=== PATIENT | female | born 1965 | race Caucasian/White ===

== ENCOUNTER → 2017-04-27 08:42 | Outpatient (CLI) | payer OTHER, SELFPAY ==
[2017-04-27 10:31] LABS: Hemoglobin A1c 5.6 % (4.2-6.3)
[2017-04-27 10:43] LABS: ALB/GLOB Ratio 1.2 RATIO (0.9-2.4); AST(SGOT) 58 U/L (15-37); Alanine Aminotransfer ALT/SGPT 88 U/L (13-56); Albumin, Serum 3.7 g/dL (3.2-5.0); Alkaline Phosphatase 66 U/L (45-117); Anion Gap 7 (5-15); BUN 12 mg/dL (7-18); BUN/Creat Ratio 18.6 RATIO (10-20); Calcium,Total 8.5 mg/dL (8.5-10.1); Chloride 104 mmol/L (98-107); Creatinine, Serum 0.64 mg/dL (0.55-1.02); EST Glomerular Filtration Rate 103 mL/min (>60); Est Glom Filt Rate - Afr Amer 125 mL/min (>60); GGTP 72 U/L (5-55); Glucose 85 mg/dL (74-106); Potassium 3.9 mmol/L (3.5-5.1); Protein, Total 6.7 g/dL (6.4-8.2); Sodium Level 141 mmol/L (136-145)
[2017-04-28 16:05] LABS: Immunoglobulin G 814 mg/dL (700-1600)
== END ==
PROVIDERS: Family Provider Family Medicine; PCP Family Medicine; Visit Provider Family Medicine
DX: K90.9 Intestinal malabsorption, unspecified (principal); R74.0 Nonspecific elevation of levels of transaminase and lactic acid dehydrogenase [LDH]
CPT/HCPCS: 36415; 80053; 82140; 82784; 82977; 83036

== ENCOUNTER → 2017-07-16 06:43 | Outpatient (CLI) | payer OTHER, SELFPAY ==
--- NOTE | 2017-07-16 07:00 | MRI_ITS ---
STUDY: MRI LEFT MIDFOOT REASON FOR EXAM: Midfoot pain status post injury 4 weeks ago. TECHNIQUE: Standardized fat and water weighted pulse sequences were obtained in all 3 orthogonal planes. COMPARISON: None. FINDINGS: There is a small tibiotalar joint effusion (inversion recovery sagittal image 10). There is a small talonavicular joint effusion (inversion recovery sagittal images 9, 10). Normal calcaneocuboid articulation. Normal navicular-cuneiform articulations. Normal intercuneiform articulations. There is very mild bone edema in the body of the calcaneus at the angle of Gissane. Normal first tarsometatarsal articulation. There is a sprain of Lisfranc ligament (T2 axial series 5 image 9) without rupture of the ligament. Normal second and third tarsometatarsal articulations. Normal cuboid fourth and cuboid fifth tarsometatarsal articulation. Normal first through fifth metatarsi. Normal tibialis anterior tendon. Normal extensor hallucis longus tendon. Normal extensor digitorum longus tendons. Normal peroneus longus tendon and distal insertion. There is mild tendinosis of the distal peroneus brevis tendon (T2 axial series 5 image 15). Normal intrinsic muscles of the mid and forefoot region. Normal extensor digitorum brevis muscle. Normal subcutis adipose space. MRI/Lower Ext/No Jt/w/o IMPRESSION: Lisfranc ligament sprain. Mild distal peroneus brevis tendinosis. Small tibiotalar and talonavicular joint effusions. Electronically Signed: Satnam Ashton MD at 8:30 EDT Tel , Service support ,
== END ==
PROVIDERS: Family Provider Family Medicine; PCP Family Medicine; Visit Provider Podiatrist
DX: S93.325A Dislocation of tarsometatarsal joint of left foot, initial encounter (principal); S90.32XA Contusion of left foot, initial encounter; S93.692A Other sprain of left foot, initial encounter
CPT/HCPCS: 73718

== ENCOUNTER 2017-11-10 08:00 | Outpatient (RCR) | payer OTHER, SELFPAY ==
--- NOTE | 2017-10-29 16:00 | HP.PTEVAL ---
Patient's Visit Information SHONA MAJANO is a 52 year old F referred to Physical Therapy by Qi Henriquez DPM with a diagnosis of L ankle and midfoot sprain. Date of Evaluation: 10/29/17 Physical Therapist: Adan Escamilla PT, - Visit Plan Frequency: 2-3x /Week Duration: 3 Weeks Plan: L ankle stretching and strengthening, balance and proprio, foam rolling, bike, US, and HEP - Subjective Subjective: DOI: 05/15/17. Pt reports she was square dancing when a man fell and stepped on her L foot. Pt reports later on that evening, she stepped into a pothole and sprained her L ankle. Pt reports she waited a month to go to the doctors, but eventually had to because she couldent walk. Pt notes she had an xray and an MRI which revealed a sprained L ankle and midfoot. Pt was placed in a boot for 2 months, but her pain only became worse. Pt reports most of her pain is located on the arch of her L foot, and on the lateral ankle aspect. Pt reports her ankle pain is jabbing in nature. Pt reports she is unable to perform a heelraise secondary to pain. 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 No sleep diff secondary to pain. Pt notes her foot is numb on the dorsal aspect near her 2-4 metatarsals. Pt's major goal is to be able to dance again, as she cant now secondary to pain. 0/10 at rest, 10/10 at worst - Pain L ankle Pain Intensity (Out of 10): 0 Pain Intensity Range: 10 - Objective Neuro: B LE sensation is WNL to light touch throughout her dermatone pattern. Palpation: No obvious deformity present. Pain on peroneal tendons near post lat malleolus. Peroneal tendon does not stay in groove with AROM eversion. Girth at malleoulus line: L ankle 22 cm, R ankle 20.5 cm. ROM: L ankle DF= -3, PF= 58, Inv= 30, ever= 18; R ankle DF= -2, PF= 48, Inv= 15, ever= 10. MMT: B foot strength is 5/5 throughout with exception to L foot inv= 4-/5 and painful. Special test: No pos tests on todays date - Goals Goal 1:: Decrease L ankle pain x 50% to aid with ambulation Goal Time Frame: 2-4 Weeks Goal 2:: Increase L ankle strength x 1 grade to aid with return to dancing Goal Time Frame: 2-4 Weeks Goal 3:: Increase L ankle DF ROM x 10 degrees to aid with decreasing pain Goal Time Frame: 2-4 Weeks Goal 4:: I with HEP Goal Time Frame: 2-4 Weeks - Rehabilitation Potential Rehabilitation Potential: Good - Anticipated Interventions Patient/Client Instruction: Educate patient on: Condition, Plan of Care For the Purpose of:: To improve self management Therapeutic Exercise to Include: Strength training, Endurance training, Balance training, Flexibilty training, Passive ROM, Active ROM For the Purpose of:: To decrease pain, To increase ROM, To improve muscle performance and motor function Ultrasound (thermal/non thermal): Yes For the Purpose of:: To decrease pain Thank you for the opportunity to evaluate your patient. For Medicare and Medicare HMO plans, please review the plan of care and approve it. It will need to be FAXED BACK to us at [phone] for Medicare purposes. Please let me know if there are questions or concerns regarding this plan of care. Physician Signature: Date:
--- NOTE | 2018-01-01 09:31 | HP.PTDCNRP_ITS ---
HP - Discharge Summary (1) - Patient Information SHONA MAJANO was seen in my office for initial evaluation on 10/29/17. The following Plan of Care was established for this patient: Initial Frequency: 2-3x /Week Initial Duration: 3 Weeks - Anticipated Interventions Patient/Client Instruction: Educate patient on: Condition, Plan of Care For the Purpose of:: To improve self management Therapeutic Exercise to Include: Strength training, Endurance training, Balance training, Flexibilty training, Passive ROM, Active ROM For the Purpose of:: To decrease pain, To increase ROM, To improve muscle performance and motor function Ultrasound (thermal/non thermal): Yes For the Purpose of:: To decrease pain This patient was last seen in our office . Pertinent comments regarding their Physical therapy will appear below: Pt was treated for 5 PT visits through the date of 11/10/17 for her L ankle spra in. Pt did not return after that date, and is therefore discontinued at this time. At this point I will be discontinuing this patient from physical therapy. I would be happy to see this patient again in the future if found appropriate by the physician. Thank you! Adan Escamilla, PT,
== END 2017-11-10 19:00 | disposition home or self-care (01) ==
LOC: PT 08:00
PROVIDERS: Family Provider Family Medicine; PCP Family Medicine; Visit Provider Podiatrist
DX: S93.402D Sprain of unspecified ligament of left ankle, subsequent encounter (principal); S93.602D Unspecified sprain of left foot, subsequent encounter; M21.612 Bunion of left foot
CPT/HCPCS: 97035; 97110; 97161

== ENCOUNTER → 2017-11-23 06:31 | Outpatient (CLI) | payer OTHER, SELFPAY ==
--- NOTE | 2017-11-23 06:41 | MRI_ITS ---
STUDY: MRI LEFT REARFOOT WITHOUT CONTRAST REASON FOR EXAM: Painful to walk, ankle instability, numbness in toes, injury in May. TECHNIQUE: Standardized fat and water weighted pulse sequences were obtained in all 3 orthogonal planes. COMPARISON: MRI images 07/16/2017. FINDINGS: Normal subcutis adipose space. There is no space-occupying lesion in the tarsal tunnel. Normal posterior tibialis tendon. Normal flexor digitorum longus tendon. Normal flexor hallucis longus tendon. There is mild tendinosis of the distal peroneus brevis tendon (T2 axial image 12) as on the prior study without discrete tendon tear. There is also mild tendinosis of the retromalleolar peroneus brevis tendon (T2 axial images 24, 25). Normal peroneus longus tendon. There is no subluxation or tenosynovitis of the peroneal tendons. Normal tibialis anterior tendon. Normal extensor hallucis longus tendon. Normal extensor digitorum longus tendons. Normal Achilles tendon and teno-osseous insertion. Normal plantar fascia. Normal plantar calcaneal tubercles. Normal intrinsic muscles of the rearfoot. Normal distal tibiofibular syndesmotic ligamentous complex. There is mild thickening of the anterior talofibular ligament (T2 axial image 21) consistent with scarring. Normal calcaneofibular and posterior talofibular ligaments.. Normal subtalar ligaments and sinus tarsi. Normal deltoid ligamentous complexes. Normal plantar calcaneonavicular (spring) ligament. Normal tibiotalar articulation. Normal talar dome. Normal subtalar articulations. Normal talonavicular articulation. Normal calcaneocuboid articulation. Normal navicular-cuneiform articulations. MRI/Lower Ext/No Jt/w/o IMPRESSION: Mild tendinosis of the peroneus brevis tendon. Mild scarring of the anterior talofibular ligament. No demonstrated subluxation of the peroneal tendons. Electronically Signed: Satnam Ashton MD at 10:37 EDT Tel , Service support ,
== END ==
PROVIDERS: Family Provider Family Medicine; PCP Family Medicine; Visit Provider Podiatrist
DX: S93.692A Other sprain of left foot, initial encounter (principal); M76.72 Peroneal tendinitis, left leg; M25.572 Pain in left ankle and joints of left foot; S93.01XD Subluxation of right ankle joint, subsequent encounter
CPT/HCPCS: 73718

== ENCOUNTER → 2017-12-24 12:29 | Outpatient (CLI) | payer OTHER, SELFPAY ==
--- NOTE | 2017-12-24 12:31 | RAD_ITS ---
STUDY: X-RAY - PARANASAL SINUSES REASON FOR EXAM: Female, 52 years old. Right-sided discomfort, sinusitis. TECHNIQUE: 3 view(s) of the paranasal sinuses were obtained. # of Images: 3 COMPARISON: None. FINDINGS: Normal visualized frontal, maxillary, ethmoidal and sphenoid sinuses. Normal visualized facial bones. The soft tissue structures are unremarkable. RAD/Sinuses min 3 Views IMPRESSION: Normal x-rays of the paranasal sinuses. Electronically Signed: Tyson Arciniega MD at 19:58 EDT , Service support ,
== END ==
PROVIDERS: Family Provider Family Medicine; PCP Family Medicine; Referring Provider Family Medicine; Visit Provider Family Medicine
DX: J32.9 Chronic sinusitis, unspecified (principal)
CPT/HCPCS: 70220

== ENCOUNTER → 2018-04-08 10:27 | Outpatient (CLI) | payer OTHER, SELFPAY ==
[2018-04-08 12:00] LABS: Absolute Lymphocyte Count 1.38 X10^3/ul (0.83-4.51); Basophil# 0.01 X10^3/uL; Basophil% 0.2 % (0-1); Eosinophil# 0.04 X10^3/uL; Eosinophils% 0.8 % (0-5); Hematocrit 39.3 % (37-47); Hemoglobin 12.7 g/dl (12.0-15.0); Lymphocyte # 1.38 X10^3/ul (4.0); Lymphocyte % 27.9 % (19-41); Mean Corp Hgb Conc 32.3 g/gl (32-36); Mean Corpuscular Hgb 32.3 pg (27.0-32.0); Monocyte# 0.49 X10^3/uL; Monocyte% 9.9 % (0-10); Neutrophil # 3.02 X10^3/uL (2.7-7.7); Platelet Count 225 K/mm3 (150-450); RBC Distribution Width CV 11.9 % (11.6-14.6); RBC Distribution Width SD 43.5 fl (35.1-43.9); Red Blood Count 3.93 M/mm3 (4.2-5.4)
[2018-04-08 12:06] LABS: POSITIVE COUNT NO; POSITIVE DIFFERENTIAL NO; POSITIVE MORPHOLOGY NO
[2018-04-08 12:19] LABS: ALB/GLOB Ratio 1.3 RATIO (0.9-2.4); AST(SGOT) 116 U/L (15-37); Alanine Aminotransfer ALT/SGPT 167 U/L (13-56); Albumin, Serum 3.9 g/dL (3.2-5.0); Alkaline Phosphatase 82 U/L (45-117); Anion Gap 10 (5-15); BUN 10 mg/dL (7-18); BUN/Creat Ratio 16.3 RATIO (10-20); Calcium,Total 8.8 mg/dL (8.5-10.1); Chloride 104 mmol/L (98-107); Creatinine, Serum 0.61 mg/dL (0.55-1.02); EST Glomerular Filtration Rate 109 mL/min (>60); Est Glom Filt Rate - Afr Amer 132 mL/min (>60); Glucose 83 mg/dL (74-106); Potassium 4.1 mmol/L (3.5-5.1); Protein, Total 6.9 g/dL (6.4-8.2); Sodium Level 142 mmol/L (136-145)
== END ==
PROVIDERS: Family Provider Family Medicine; PCP Family Medicine; Visit Provider Family Medicine
DX: M79.89 Other specified soft tissue disorders (principal)
CPT/HCPCS: 36415; 80053; 85025

== ENCOUNTER → 2018-04-08 10:43 | Outpatient (CLI) | payer OTHER, SELFPAY ==
--- NOTE | 2018-04-08 10:49 | VDLE_ITS ---
Reason For Study: swelling RIGHT LEFT CFV is compressible, spontaneous, phasic, GSV is normal. competent and demonstrates normal CFV is compressible, spontaneous, phasic, augmentation. competent, and demonstrates normal Procedure augmentation. Exam performed in department. FV is compressible, spontaneous, phasic, The exam was diagnostic. competent and demonstrates normal A preliminary report was called and/or faxed augmentation. to Dr. Preston. POP V is compressible, spontaneous, phasic, competent and demonstrates normal augmentation. T/P Trunk is compressible. PTV is compressible. LT PerV is compressible. Interpretation Summary Deep veins of the left lower extremity are patent and compressible segmentally. There is no evidence of left lower extremity deep vein thrombosis. Valvular competence appears intact within the proximal deep venous system on the left . The left greater saphenous vein appears patent and compressible segmentally. Ordering Physician: Richard Preston Performed By: Carlos Ramos RVCeci
== END ==
PROVIDERS: Family Provider Family Medicine; PCP Family Medicine; Referring Provider Family Medicine; Visit Provider Family Medicine
DX: M79.89 Other specified soft tissue disorders (principal)
CPT/HCPCS: 93971

== ENCOUNTER 2018-08-05 15:30 | Outpatient (RCR) | payer OTHER, SELFPAY ==
--- NOTE | 2018-04-02 14:03 | HP.PTEVAL_ITS ---
Patient's Visit Information SHONA MAJANO is a 52 year old F referred to Physical Therapy by FLAVIO PIZARRO with a diagnosis of L tibial tendon repair. Date of Evaluation: 04/02/18 Physical Therapist: Adan Escamilla, PT, ATC - Visit Plan Frequency: 2-3x /Week Duration: 2 Months Plan: L ankle PRO/mobs, stretching and strengthening, balance and proprio, bike, and HEP - Subjective Findings: DOS: 02/04/18. Pt reports she had L ankle pain since May of 2017. Pt reports a heavy man fell on her L qnkle while she was square dancing. Pt reports she continued to have pain even with PT. Pt reports she finally had surgery to repair her peroneal brevis tendon as it had multiple tears and was subluxing out of fibular groove. Pt reports she is still sore this date, but notes she is doing much better. Pt reports she is now able to put 10# on her foot each day now, but she shouldnt perform ex's that hurt. 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 No sleep difficulty secondary to pain. 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 Pt is still not able to negotiate stairs at this time.3/10 pain at rest, 5/10 at worst (increased WB'ing activity) - Pain L ankle Pain Intensity (Out of 10): 3 Pain Intensity Range: 5 - Objective Neuro: B LE sensation is WNL to light touch. Observation: Incisions healed. Minor swelling present. No obvious deformity. ROM: R ankle DF= 7, PF= 62, Inv= 35, ever= 15; L ankle DF= 0, PF= 40, Inv= 0, ever= 0. MMT: R ankle is 5/5 throughout. L ankle 3/5 and painful. Girth at joint line: R ankle 23.5 cm, L ankle 25 cm - Goals Goal 1:: Decrease L ankle pain x 50% to aid with tolerance to prolonged wb'ing a ctivity Goal Time Frame: 6-8 Weeks Goal 2:: Increase L ankle strength x 1 grade to aid with stair negotiation Goal Time Frame: 6-8 Weeks Goal 3:: Increase ankle DF ROM x 10-15 degrees to aid with restoring a more normalized gait pattern Goal Time Frame: 6-8 Weeks Goal 4:: I with HEP Goal Time Frame: 6-8 Weeks - Rehabilitation Potential Physical Therapy Diagnosis: L ankle pain, weakness, and limited ROM secondary to L tibial tendon repair Rehabilitation Potential: Good - Anticipated Interventions Patient/Client Instruction: Educate patient on: Condition, Plan of Care For the Purpose of:: To improve self management Therapeutic Exercise to Include: Strength training, Endurance training, Balance training, Flexibilty training, Gait and locomotor training, Passive ROM, Active ROM For the Purpose of:: To decrease pain, To increase ROM, To improve muscle performance and motor function Cryotherapy (ice pack, ice massage): Yes For the Purpose of:: To decrease pain Thank you for the opportunity to evaluate your patient. For Medicare and Medicare HMO plans, please review the plan of care and approve it. It will need to be FAXED BACK to us at [phone] for Medicare purposes. For Medicare only, by signing this I certify the plan of care. Please let me know if there are questions or concerns regarding this plan of care. Physician Moreno smith: Date:
--- NOTE | 2018-08-05 15:54 | HP.PTREVAL ---
FLAVIO PIZARRO, It has been my pleasure to treat SHONA MAJANO over the last 10 visits for L tibial tendon repair. Please see the progress note below for an update on the physical therapy plan of care! Subjective: Pt reports she is still very tight. Pt reports she thinks she needs more strengthening and balance ex's Objective/Function: L ankle pain is 3/10. L ankle DF ROM 6 degrees. L ankle MMT: DF= 4/5, PF= 5/5, Inv and Ever= 4-/5. Pt is progressing well toward Rx goals but needs further skilled PT for emphasis on ROM and strengthening Plan Plan: Instruct and issue HEP for pt to perform daily strengthening ex's. Cont with gym routine 1 time per week for 4 weeks. Goals Goal 1:: Decrease L ankle pain x 50% to aid with tolerance to prolonged wb'ing activity Goal Time Frame: 6-8 Weeks Goal Progress: Progressing Goal 2:: Increase L ankle strength x 1 grade to aid with stair negotiation Goal Time Frame: 6-8 Weeks Goal Progress: Progressing Goal 3:: Increase ankle DF ROM x 10-15 degrees to aid with restoring a more normalized gait pattern Goal Time Frame: 6-8 Weeks Goal Progress: Progressing Goal 4:: I with HEP Goal Time Frame: 6-8 Weeks Goal Progress: Progressing Anticipated Interventions Patient/Client Instruction: Educate patient on: Condition, Plan of Care For the Purpose of:: To improve self management Therapeutic Exercise to Include: Strength training, Endurance training, Balance training, Flexibilty training, Gait and locomotor training, Passive ROM, Active ROM For the Purpose of:: To decrease pain, To increase ROM, To improve muscle performance and motor function Cryotherapy (ice pack, ice massage): Yes For the Purpose of:: To decrease pain Please do not hesitate to contact me at [phone] by phone or if you have questions or concerns regarding this new plan of care! Sincerely, Adan Escamilla, PT, ATC
--- NOTE | 2018-09-21 08:25 | HP.PT.NRP ---
HP - Discharge Summary (1) - Patient Information SHONA MAJANO was seen in my office for initial evaluation on 04/02/18. The following Plan of Care was established for this patient: Initial Frequency: 2-3x /Week Initial Duration: 2 Months - Anticipated Interventions Patient/Client Instruction: Educate patient on: Condition, Plan of Care For the Purpose of:: To improve self management Therapeutic Exercise to Include: Strength training, Endurance training, Balance training, Flexibilty training, Gait and locomotor training, Passive ROM, Active ROM For the Purpose of:: To decrease pain, To increase ROM, To improve muscle performance and motor function Cryotherapy (ice pack, ice massage): Yes For the Purpose of:: To decrease pain This patient was last seen in our office . Pertinent comments regarding their Physical therapy will appear below: Pt was treated for 10 PT visits for her L ankle pain through the date of 08/05/18. Pt has not returned through todays date and is therefore discontinued at this time. At this point I will be discontinuing this patient from physical therapy. I would be happy to see this patient again in the future if found appropriate by the physician. Thank you! Adan Escamilla, PT, ATC
== END 2018-08-05 19:00 | disposition home or self-care (01) ==
LOC: PT 15:30
PROVIDERS: Family Provider Family Medicine; PCP Family Medicine
DX: S93.05XD Dislocation of left ankle joint, subsequent encounter (principal); Z98.890 Other specified postprocedural states
CPT/HCPCS: 97110; 97113; 97161; 97530

== ENCOUNTER → 2018-08-17 13:34 | Outpatient (CLI) | payer OTHER, SELFPAY ==
[2018-08-17 15:46] LABS: Hemoglobin A1c 5.2 % (4.2-6.3)
[2018-08-17 16:05] LABS: Cholesterol 165 mg/dL (200); Glucose 75 mg/dL (74-106); High Density Lipoprotein 38 mg/dL; Triglycerides 153 mg/dL; Very Low Density Lipoprotein 31 mg/dL (5-40)
== END ==
PROVIDERS: Family Provider Family Medicine; PCP Family Medicine; Referring Provider Family Medicine; Visit Provider Family Medicine
DX: Z00.00 Encounter for general adult medical examination without abnormal findings (principal); Z01.89 Encounter for other specified special examinations
CPT/HCPCS: 36415; 80061; 82947; 83036

== ENCOUNTER 2018-09-04 14:01 | Emergency (ER) | payer OTHER, SELFPAY ==
[2018-09-04 14:02] VITALS: BP 110/52; PULSE 69; RESP 16; TEMP 36.8; O2SAT 100; BMI 17.6
--- NOTE | 2018-09-04 14:17 | RAD_ITS ---
STUDY: X-RAY - LEFT KNEE REASON FOR EXAM: Female, 53 years old. Fall, bruising TECHNIQUE: 4 view(s) of the knee. COMPARISON: None. FINDINGS: Normal visualized distal femur. Normal visualized proximal tibia and fibula. Normal proximal tibiofibular articulation. Normal medial femorotibial compartment. Normal lateral femorotibial compartment. Normal patellofemoral articulation. There is no demonstrated joint effusion. The soft tissue structures are unremarkable. RAD/Knee 4 or More Views IMPRESSION: No fracture or malalignment. Electronically Signed: Sixto Esparza MD at 14:48 EDT , Service support ,
--- NOTE | 2018-09-04 14:17 | RAD_ITS ---
STUDY: X-RAY - RIGHT FOOT CLINICAL: Female, 53 years old. Fall, bruising of the fourth and fifth digits TECHNIQUE: 3 view(s) of the foot. COMPARISON: None. FINDINGS: Normal talus, calcaneus, and tarsal bones. Normal visualized subtalar, talonavicular, calcaneocuboid, tarsal and tarsometatarsal articulations. Normal metatarsi. Normal metatarsophalangeal joint of the great toe. Normal tibial and fibular sesamoid bones. Normal interphalangeal joint of the great toe. Normal phalanges of the great toe. Normal second through fifth metatarsophalangeal joints. Normal interphalangeal joints and phalanges of the lesser toes. The soft tissue structures are unremarkable. RAD/Foot min 3 Views IMPRESSION: No fracture or malalignment. Electronically Signed: Sixto Esparza MD at 14:47 EDT , Service support ,
--- NOTE | 2018-09-04 14:20 | ED.DCSUM_ITS ---
History of Present Illness Chief Complaint: Lower Extremity Injury Detail of Chief Complaint: Right foot and left knee Informant: Patient Occurred: Today Mechanism/Context: Fall Onset: Today Context: Sudden Onset Timing: Continuous Quality of Pain: Aching Current Severity: Mild Maximum Severity: Moderate Worsened by: Pressure right foot and twisting left knee Relieved by: Rest Associated Symptoms: Negative for: Parasthesia, Weakness, Loss of Funtion Narrative: Patient states she stepped on uneven surface injuring her right ankle/foot and left knee. She is not sure exactly how she injured her knee. She does have an abrasion. She states immunizations up-to-date. She is concerned because of swelling and discoloration lateral proximal right foot. She denied head trauma. She denied neck pain. She denies paresthesia, anesthesia buttocks. Is on no anticoagulant. Prior similar symptoms: No Recent Illness/Hospitalization: No - Past Medical History (1) No significant past medical history Status: Acute Past Medical History - Allergies and Home Meds Allergies/Adverse Reactions: Allergies No Known Allergies Allergy (Verified 09/04/18 14:02) Primary Care Physician: Richard Preston MD [Primary Care Provider] - Surgical History: - Lives: Spouse/ Significant Other Smoking Status: Never smoker Drugs: None Review of Systems Musculoskeletal: Reports: Swelling - Right foot, Extremity Pain - Right foot and left knee. Denies: Myalgias, Arthralgias, Neck pain, Back pain Skin: Reports: Abrasions - Anterior left knee. Denies: Rash, Abscess Neurological: Denies: Weakness, Parasthesia, Numbness Hematologic: Denies: Easy bruising, Easy bleeding Physical Exam Vital Signs/Narrative: Vital Signs Temp Pulse Resp BP Pulse Ox 09/04/18 14:02 98.2 F 69 16 110/52 L 100 - Extremity Exam Right Pelvis: Negative for: Abrasion, Contusion, Deformity, Edema, Hematoma, Odell ited ROM, - Left Pelvis: Negative for: Abrasion, Contusion, Deformity, Edema, Hematoma, Limited ROM, - Right Hip: Negative for: Abrasion, Contusion, Deformity, Edema, Hematoma, Limited ROM, - Left Hip: Negative for: Abrasion, Contusion, Deformity, Edema, Hematoma, Limited ROM, - Right Femur: Negative for: Abrasion, Contusion, Deformity, Edema, Hematoma, Limited ROM, - Left Femur: Negative for: Abrasion, Contusion, Deformity, Edema, Hematoma, Limited ROM, - Right Knee: Negative for: Abrasion, Contusion, Deformity, Edema, Hematoma, Limited ROM, - Left Knee: Abrasion, - - No obvious effusion. The patella is not ballotable. There is no laxity with varus or valgus stress testing. Lupillo's test was negative. Modified Anjelica's test was positive for click and pain laterally. There is no pain to palpation in the popliteal fossa.. Negative for: Contusion, Deformity, Edema, Hematoma, Limited ROM Right Tib fib: Negative for: Abrasion, Contusion, Deformity, Edema, Hematoma, Limited ROM, - Left Tib Fib: Negative for: Abrasion, Contusion, Deformity, Edema, Hematoma, Limited ROM, - Right Ankle: Negative for: Abrasion, Contusion, Deformity, Edema, Hematoma, Limited ROM, - Left Ankle: Negative for: Abrasion, Contusion, Deformity, Edema, Hematoma, Limited ROM, - Right Foot: Contusion, Hematoma, - - There is a notable hematoma lateral right foot over the tarsal bones.. Negative for: Abrasion, Deformity, Edema, Limited ROM Left Foot: Negative for: Abrasion, Contusion, Deformity, Edema, Hematoma, Limited ROM, - Right Toe: Negative for: Abrasion, Contusion, Deformity, Edema, Hematoma, Limited ROM, - Left Toe: Negative for: Abrasion, Contusion, Deformity, Edema, Hematoma, Limited ROM, - General: Well nourished, Well developed Head: Normocephalic, Atraumatic Eyes: Perrl, EOMI Cardiovascular: Regular rate, Regular rhythm Respiratory: No distress Skin: Normal color, No rash, No Trauma - Right foot hematoma. Negative for: Cyanosis, Diaphoresis, Jaundice Neurological: Alert - Is, Oriented x3, Cranial nerves II-XII grossly intact, No rmal Strength, Normal Sensation Psychological: Normal affect Diagnostic/Tx/Re-eval Chest X-Ray - ED: Read by ED Physician, - - Three-view x-ray of the right foot was obtained. There is no evidence of fracture or malalignment of the joints. 4 view x-ray of the left knee was obtained and interpreted by me as negative for fracture, effusion or malposition of the patella. - Medical Decision Making Proximal lateral right foot will obtain x-ray to evaluate for fracture. Because patient has a positive Lupillo's test will obtain x-ray of the left knee to evaluate for any fracture. Since patient's x-rays are negative we will treat symptomatically. She was referred to orthopedics for follow-up, Dr. Javier Marti ED Disposition - Plan for ED Patient: Disposition: Home or Assisted Living Diagnosis: Right foot strain, Left lateral knee pain Instructions: KNEE PAIN, Meniscus Injury (Possible), Sprain Foot Prescriptions: Naproxen [Naprosyn] 500 mg PO BID #14 tab Prescription Printed Referrals: Richard Preston MD [Primary Care Provider] - Ranjit Marti MD [STAFF PHYSICIAN] - 5-7 Days
== END 2018-09-04 15:22 | disposition home or self-care (01) ==
PROVIDERS: Emergency Provider Emergency Medicine; Family Provider Family Medicine; PCP Family Medicine
DX: S96.911A Strain of unspecified muscle and tendon at ankle and foot level, right foot, initial encounter (principal); M25.562 Pain in left knee; W18.30XA Fall on same level, unspecified, initial encounter; Y93.9 Activity, unspecified; Y92.89 Other specified places as the place of occurrence of the external cause; Y99.9 Unspecified external cause status
CPT/HCPCS: 73564; 73630; 99282

== ENCOUNTER → 2018-12-28 08:32 | Outpatient (CLI) | payer OTHER, SELFPAY ==
[2018-12-28 11:09] LABS: Cholesterol 215 mg/dL (200); Glucose 93 mg/dL (74-106); High Density Lipoprotein 72 mg/dL; Triglycerides 98 mg/dL; Very Low Density Lipoprotein 20 mg/dL (5-40)
== END ==
PROVIDERS: Family Provider Family Medicine; PCP Family Medicine; Referring Provider Family Medicine; Visit Provider Family Medicine
DX: Z13.220 Encounter for screening for lipoid disorders (principal)
CPT/HCPCS: 36415; 80061; 82947

== ENCOUNTER → 2019-04-01 12:16 | Outpatient (CLI) | payer OTHER, SELFPAY ==
--- NOTE | 2019-04-01 12:20 | RAD_ITS ---
STUDY: X-RAY - UNILATERAL RIBS ( LEFT ) WITH CHEST REASON FOR EXAM: Female, 53 years old. left sided chest wall pain, no injury TECHNIQUE - RIBS: 3 view(s) of the ribs. TECHNIQUE - CHEST: PA COMPARISON: None. FINDINGS - RIBS: Normal visualized ribs without a demonstrated fracture. FINDINGS - CHEST: The lungs are clear and expanded. There is pleural fibrotic thickening of the pulmonary lung apices. Normal size heart. Normal mediastinum and ladonna. Normal visualized pulmonary arteries. Normal visualized aortic arch and descending thoracic aorta. Normal visualized thoracic spine. Normal visualized ribs, clavicles, and shoulders. There is no demonstrated abnormality of the visualized soft tissue structures of the upper abdomen. RAD/Ribs Uni Min 3V w/PA Chest IMPRESSION: RIBS: No demonstrated rib fracture. CHEST: Nonacute x-ray examination of the chest. Electronically Signed: Sixto Esparza MD ([place]) at 15:28 EST , Service support ,
== END ==
PROVIDERS: PCP Family Medicine; Referring Provider Family Medicine; Visit Provider Family Medicine
DX: R07.89 Other chest pain (principal)
CPT/HCPCS: 71101

== ENCOUNTER → 2021-12-26 | Outpatient (CLI) | payer OTHER, SELFPAY ==
[2021-12-26 10:22] LABS: Absolute Lymphocyte Count 1.45 X10^3/uL (0.83-4.51); Absolute Neutrophil Count 1.8 X10^3/uL (2.0-7.7); Basophil# 0.04 X10^3/uL; Basophil% 1.1 % (0-1); Eosinophil# 0.06 X10^3/uL; Eosinophils% 1.6 % (0-5); Hematocrit 41.5 % (37-47); Hemoglobin 13.4 g/dL (12.0-15.0); Lymphocyte # 1.45 X10^3/ul (0.83-4.51); Lymphocyte % 39.1 % (19-41); Mean Corp Hgb Conc 32.3 g/dL (32-36); Mean Corpuscular Hgb 31.4 pg (27.0-32.0); Mean Corpuscular Volume 97.2 fL (81-99); Mean Platelet Vol. 9.5 fl (6.2-12.0); Monocyte# 0.38 X10^3/uL; Monocyte% 10.2 % (0-10); NRBC Flagged by Analyzer 0 % (0-5); Neutrophil # 1.78 X10^3/uL (2.7-7.7); Platelet Count 307 K/mm3 (150-450); RBC Distribution Width CV 11.9 % (11.6-14.6); RBC Distribution Width SD 42.5 fl (35.1-43.9); Red Blood Count 4.27 M/mm3 (4.2-5.4); White Blood Count 3.7 K/mm3 (4.4-11.0)
[2021-12-26 10:36] LABS: Prothrombin Time (Protime)PT. 12.4 SECONDS (11.7-14.9)
[2021-12-26 11:06] LABS: ALB/GLOB Ratio 1.1 RATIO (0.9-2.4); AST(SGOT) 31 U/L (15-37); Alanine Aminotransfer ALT/SGPT 33 U/L (13-56); Albumin, Serum 3.9 g/dL (3.2-5.0); Alkaline Phosphatase 69 U/L (45-117); Anion Gap 5 (5-15); BUN 15 mg/dL (7-18); BUN/Creat Ratio 20.7 RATIO (10-20); Calcium,Total 9.1 mg/dL (8.5-10.1); Chloride 106 mmol/L (98-107); Cholesterol 261 mg/dL (200); Creatinine, Serum 0.73 mg/dL (0.55-1.02); EST Glomerular Filtration Rate 88 mL/min (>60); Est Glom Filt Rate - Afr Amer 107 mL/min (>60); Ferritin 63 ng/mL (8-252); GGTP 23 U/L (5-55); Globulin 3.5 g/dL (2.2-4.2); Glucose 88 mg/dL (74-106); High Density Lipoprotein 110 mg/dL; Potassium 3.9 mmol/L (3.5-5.1); Prealbumin 21.3 mg/dL (20.0-40.0); Protein, Total 7.4 g/dL (6.4-8.2); Sodium Level 138 mmol/L (136-145); Thyroid Stim Hormone (TSH) 1.73 uIU/mL (0.358-3.74); Triglycerides 42 mg/dL; Very Low Density Lipoprotein 8 mg/dL (5-40)
[2022-01-02 17:21] LABS: Pancreatic Elastase, Fecal 212 (>200)
[2022-01-09 15:45] LABS: Fats, Neutral Normal (.)
[2022-01-09 15:46] LABS: Fats, Total Normal (.)
== END | disposition home or self-care (01) ==
LOC: MFPLAB 08:04
PROVIDERS: PCP Family Medicine; Visit Provider Family Medicine
DX: R63.6 Underweight (principal); R74.8 Abnormal levels of other serum enzymes; Z13.220 Encounter for screening for lipoid disorders
CPT/HCPCS: 36415; 80053; 80061; 82653; 82705; 82728; 82977; 84134; 84443; 85025; 85610

== ENCOUNTER → 2022-11-26 | Outpatient (CLI) | payer OTHER, SELFPAY ==
[2022-12-02 13:08] LABS: HPV APTIMA, High Risk Negative (Negative)
[2022-12-02 19:50] LABS: HPV Reflexed? YES, CHARGE PATIENT
== END | disposition home or self-care (01) ==
PROVIDERS: PCP Family Medicine; Visit Provider Nurse Practitioner Family
DX: Z12.4 Encounter for screening for malignant neoplasm of cervix (principal)
CPT/HCPCS: 87624; 88175; G0145

== ENCOUNTER 2024-01-04 01:18 | Emergency (ER) | payer OTHER, SELFPAY ==
[2024-01-04 01:18] VITALS: BP 135/62; PULSE 80; RESP 16; TEMP 36.9; O2SAT 100; BMI 22.4
--- NOTE | 2024-01-04 01:23 | EX.ED.DYSGE1 ---
HPI History of Present Illness Chief Complaint: Lower Extremity Injury Detail of Chief Complaint: Left foot pain Informant: patient Onset/Context/Timing Onset: Hours Context: Sudden Onset Timing: Continuous Quality: Pain left foot Location: The entire left foot Current Severity: Mild Maximum Severity: Severe Worsened by: Weightbearing, palpation over the tarsal bones Relieved by: Nothing Associated Symptoms Associated Symptoms: No other symptoms Narrative Narrative: Patient is a 58-year-old woman. She is on no medication. She does not like to take pain medicine. She states she bought a new pair of dance shoes. Her and the instructor were dancing vigorously. She has complained of left foot pain for the past couple hours. She does not know of any specific mechanism as far as inversion or eversion mechanism of injury. She did not complain of ankle pain. She has no other symptoms or complaints Prior similar symptoms: Yes (2018 per outside records) Recent Illness/Hospitalization: No PFSH PFSH Medical History no medical history no medical history Home Medications ?Medication ?Instructions ?Recorded ?Last Taken ?Type NK 01/04/24 Unknown History Allergy/AdvReac Type Severity Reaction Status Date / Time No Known Allergies Allergy Verified 01/04/24 01:18 Surgical History (Updated 01/04/24 @ 01:19 by Mary Garg) History of ankle surgery Social History (Updated 01/04/24 @ 01:[address] Ke Ramírez MD) household members: none Smoking Status: Never smoker ROS ROS ED Musculoskeletal Musculoskeletal: Reports other Details: Foot pain Integumentary Denies rash Neurologic Neurologic: Denies paresthesias Hematologic/Lymphatic Hematologic/Lymphatic: Denies easy bleeding or easy bruising EXAM Physical Exam Const Vital Signs: 01/04/24 01:18 Temperature 98.5 F Temperature Source Oral Pulse Rate 80 Respiratory Rate 16 Blood Pressure 135/62 H Blood Pressure Mean 86 Pulse Ox 100 Positive well nourished and well developed General Appearance ED: well developed and NAD; Negative for pallor Eyes PERRL and EOMs intact bilaterally Resp normal respiratory effort Cardio regular rate and regular rhythm Extremity normal to inspection Extremity Narrative: Tenderness over the tarsal bones. There is no bruising or soft tissue swelling noted. There is no pain ovation over the lateral or medial malleolus. There is no pain specifically over the base of the fifth metatarsal. DP and PT pulse are palpable and 2+. There is no clubbing or cyanosis of the toes. There is no subungual hematoma noted. There is no discoloration of the foot. General Extremety ED: Yes tenderness Neuro oriented x3 and CN's II-XII intact bilaterally Sensorium / Orientation: alert Psych mental status grossly normal Skin no rashes or lesions noted, no wounds and skin turgor normal General Skin Exam: elasticity normal; Negative for jaundice or pallor MDM MDM MDM Narrative Medical decision making narrative: Differential diagnosis is foot strain versus stress fracture. Will obtain x-ray. Patient states she has been applying ice but she does not have the appropriate device to apply ice. Patient was informed that she can put ice in a Ziploc baggy. History & Record Review Additional record(s) reviewed:: Prior outpatient record (Outside records indicates she had problems with her foot in 2018.) and Prior ED visit (Seen August 2018 for left knee pain.) Radiography Chest X-Ray - ED: Read by ED Physician (Three-view x-ray of the left foot reveals fusion of some of the tarsal bones laterally. Patient has had surgery on that foot. Surgery was related to the ligaments and tendons.) Discharge Plan Triage Chief Complaint: Lower Extremity Injury ED Provider: Ke Ramírez Dx/Rx/DC Orders Clinical Impression: Osteoarthritis of left foot joint, Acute pain of left foot Instructions: ED Osteoarthritis Prescriptions: No Action NK Primary Care Provider: Richard Preston Referrals: Richard Preston MD [Primary Care Provider] - 1 Week if not improving Activity Restrictions/Additional Instructions: 1. Apply ice to your left foot 6-8 times a day for the next 3 to 5 days. 2. Take either 3 ibuprofen tablets every 8 hours or 2 Aleve tablets every 12 hours for next 3 to 5 days. Print Language: [place] Disposition Disposition: Home, Self Care
--- NOTE | 2024-01-04 01:38 | RAD_ITS ---
INDICATION: Injury/Pain FALL LAST NIGHT, GENERAL LEFT FOOT PAIN ALL OVER EXAMINATION/TECHNIQUE: X-RAY - LEFT XR Foot Min 3 Views 3 VIEWS COMPARISON: No relevant prior comparison study available FINDINGS: BONES: Osteopenic. No definite fracture demonstrated. JOINTS: No dislocation. SOFT TISSUES: Unremarkable. RAD/Foot min 3 Views IMPRESSION: No definite evidence of fracture. Electronically Signed: Allyssa Montilla MD at 2:38 EDT ,
--- OUTSIDE RECORDS SUMMARY | 2024-01-04 02:00 | XMS RPT_ITS | CCD ---
Author Organization [facility] Care Team Providers Care Actuarial Internship Name Role Phone FLAVIO CHILDERS Unavailable Unavailable FLAVIO CHILDERS Unavailable Unavailable Problems Problem Classification Problem Date Documented Da te Episodic/Chronic Joint disorders and dislocations; trauma-related (1 source) Dislocation of left ankle joint, initial encounter; Translations: [Dislocation of left ankle joint, initial encounter] Onset: 02-04-2018 Episodic Results Test Name Value Interpretation Reference Range Facility MRI ANKLE WO IVCON LTon 09-0 MRI ANKLE WO IVCON LT * * *Final Report* * * DATE OF EXAM: Nov 09 2018 9:08AM [facility] [id number] - MRI ANKLE WO IVCON LT / PROCEDURE REASON: Acute left ankle pain * * * * Physician Interpretation * * * * HISTORY: Acute left ankle pain ADDITIONAL HISTORY (if applicable): Status post 02/04/2018 surgery with repair of the peroneus brevis tendon, perineal tenosynovectomy, repair of dislocating peroneal tendons by deepening of the fibular groove, and repair of the superior peroneal retinaculum. A flow graft allograft was applied. TECHNIQUE: MRI ANKLE WO IVCON LT RESULT: MRI of the left ankle. Comparison is to foot radiographs 09/04/2018 and ankle radiographs from 11/30/2017. Prior MRIs November 23 of 07/16/2017 are also reviewed. The examination is limited by motion and mild postoperative artifacts laterally. Comparison is limited due to different imaging techniques. The common peroneal tendon sheath is mildly distended with fluid, new when compared to the prior. There has been deepening of the fibular groove. There is underlying lateral malleoli marrow edema without fracture. The peroneal tendons are positioned within the groove. The peroneus brevis is thickened with increased signal from the malleolus distally over approximately 2.5 cm. It is thinned at its insertion on the peroneal tubercle. The peroneus longus is also thickened from the malleolus distally over approximately 2 cm, proximal to the cuboid. At least some of the increased signal is related to magic angle artifact. The overlying retinaculum is thickened consistent with postoperative change. Mild overlying subcutaneous edema. Edema in Kager's fat pad is more prominent than on the preoperative study. The medial plantar flexors and Achilles are normal, as are the dorsiflexors. There is no joint effusion. The anterior and posterior tibiofibular and talofibular ligaments are intact. There is new edema in the calcaneofibular ligament. Deltoid and spring ligaments are intact and unchanged. The Lisfranc ligament is intact. Normal plantar fascia. Muscle bulk is preserved. No fracture. IMPRESSION: LATERAL ANKLE SOFT TISSUE SWELLING WHERE THERE ARE POSTOPERATIVE CHANGES. THE PERONEAL TENDONS ARE NOT SUBLUXED. THEY ARE THICKENED WITH INCREASED SIGNAL. NO DISCONTINUITY. FINDINGS ARE NONSPECIFIC AND COULD REPRESENT POSTOPERATIVE CHANGES OR TENDINOSIS. NONSPECIFIC EDEMA IN THE CALCANEOFIBULAR LIGAMENT. NONSPECIFIC EDEMA IN THE LATERAL MALLEOLUS DEEP TO POSTOPERATIVE CHANGES OF THE PERONEAL GROOVE. Locker Room Clerk: PSCB Transcribe Date/Time: Nov 09 2018 10:38A Dictated by : LAILA MALHOTRA MD This examination was interpreted and the report reviewed and electronically signed by: LAILA MALHOTRA MD on Nov 09 2018 11:19AM EST [id number] Normal [facility] PROGRESSon 11-09-2018 PROGRESS HNO ID: [id number] Author: Bridgette Lewis (Rt) Service: ? Author Type: Machine Technician Type: Progress Notes Filed: 11/09/2018 8:53 AM Note Text: Radiology Service Progress Note PATIENT NAME: Sirisha Romero DATE OF SERVICE: November 09, 2018 TIME: 8:53 AM PATIENT IDENTITY VERIFICATION COMPLETED USING TWO (2) METHODS: Name and Date of confirmed by patient verbally. PATIENT GENDER DATA: Female. status: : No status: NO. PATIENT RELEVANT IMPLANT DATA REVIEWED: Yes RADIOLOGY DEPARTMENT: MR; Exam(s) Completed: Lower MSK: Ankle/Hind Foot, left PERIPHERAL IV DATA: Not applicable SIGNED BY: RT Joshua November 09, 2018 8:53 AM Normal [facility] CNOVon 10-29-2018 CNOV Office Visit (ORTHIN ) SIRISHA ROMERO ([id number]) 1965 F Date Time Provider Department 10/29/18 9:00 AM FLAVIO CHILDERS During your visit today, we recorded the following information about you: Flavio Childers MD 11/01/2018 6:09 AM Signed REFERRING DRGema : CALEB Grimm is now 10 mths status post ARTHROTOMY ANKLE W/ SYNOVECTOMY AND TENOSYNOVECTOMY.. Patient has a pain level of 2 , pt complaing of new injury done 09/04/18, f/u ED She reports pain in her left ankle Do you have a metal allergy?: No Vital Signs: LMP 04/24/2015 Current Medication: No current outpatient medications on file. No current facility-administered medications for this visit. Medical History: PAST MEDICAL HISTORY Diagnosis Date - Acne - Snoring Surgical History: PAST SURGICAL HISTORY Procedure Laterality Date - BIOPSY BREAST 1992 left - BX BREAST PERC VACUUM/ROTN 01/04/10 Left 12 oclock - COLONOSCOP W/ OR W/O [facility] SPEC 04/11/14 normal Colon - EGD W/O [facility] SPECIMEN W/BX 04/11/14 gastritis - REMOVE TONSILS/ADENOIDS,<12 Y/O Current Tx Plan Includes: Weight Bearing Status: yes PHYSICAL EXAM: left ankle Physical examination reveals an alert and oriented patient who is in no acute distress while sitting and is of normal mood and affect. Gait Cycle: Normal Yes, Limp: antalgic: none. Inspection: Alignment: neutral Symmetry: Swelling: yes. Redness: no. Ecchymosis: no Effusion: 0 Palpation: Warmth: no, Tenderness:Yes: Ankle: Peroneal Tendon ROM: Ankle- Normal. Strength: 5 Stability: Ligamentous instability: no Specialized Tests: negative Neurologic Status: normal. Vascular Status: normal Skin: Normal Right Upper Extremities:No gross abnormalities Left Upper Extremities:No gross abnormalities X-RAY: None new today. DX: (M25.572) Acute left ankle pain (primary encounter diagnosis) PLAN: On physical exam, there is tenderness in the peroneal tendons as well as swelling in the ankle. The tendons of the ankle appear to be functioning properly. She may engage in PT to rehabilitate the ankle. I will order an MRI to render a more accurate diagnosis and assess proper treatment options. Return to clinic to discuss MRI results HPI explored in detail with patient and edited as necessary. At the conclusion of the visit the patient voiced understanding and agreement with the plan. The patient knows to call us or present to the nearest Emergency Department if the patients pain increases. Patient knows how to reach us if there are any questions or problems. This note was partially generated using [employer] voice recognition system, and there may be some incorrect words, spellings, and punctuation that were not noted in checking the note before saving. Scribe Attestation: By signing my name below, I, Bob Wilkerson, attest that this documentation has been prepared under the direction and in the presence of Flavio Childers M.D. Electronically Signed:quinten Goodman, October 29, 2018 9:08 AM Provider Attestation: I, Flavio Childers M.D., personally performed the services described in this documentation. All medical record entries made by the scribe were at my direction and in my presence. I have reviewed the chart and discharge instructions (if applicable) and agree that the record reflects my personal performance and is accurate and complete. Flavio Childers MD October 29, 2018 9:08 AM Referring Provider: SELF [200] Allergies As of Date: 10/29/2018 (No Known Allergies) Date Reviewed: 10/29/2018 Reviewed by: Lindsey Carpio Ma - Fully Assessed Reason for Visit: Recheck [92] Cmt: pt complaining of new injury September 04 f/u ED Reason For Visit History Recorded Primary Visit Diagnosis:Acute left ankle pain [M25.572] Other Visit Diagnosis:Injury of peroneal tendon of left foot, initial encounter [S86.302A] Order(s):MRI ANKLE WO IVCON LT [[id number]] Order #: [id number] FUTURE Problem List As Of Date 10/29/2018 Noted Resolved FAMILY HX BREAST MALIG [Z80.3] INVALID FOR* Microcalcifications of the Breast [R92.0] INVALID FOR* Diarrhea [R19.7] INVALID FOR*02/01/2018 Subluxation of peroneal tendon of left foot [S9*INVALID FOR* Postoperative state [Z98.890] INVALID FOR* Metatarsalgia of left foot [M77.42] INVALID FOR* Encounter Status:Closed by FLAVIO CHILDERS MD on 11/01/18 Normal [facility] PROGRESSon 10-29-2018 PROGRESS HNO ID: [id number] Author: Flavio Childers Service: ? Author Type: Physician Type: Progress Notes Filed: 11/01/2018 6:09 AM Note Text: REFERRING DRGema : CALEB Grimm is now 10 mths status post ARTHROTOMY ANKLE W/ SYNOVECTOMY AND TENOSYNOVECTOMY.. Patient has a pain level of 2 , pt complaing of new injury done 09/04/18, f/u ED She reports pain in her left ankle Do you have a metal allergy?: No Vital Signs: LMP 04/24/2015 Current Medication: No current outpatient medications on file. No current facility-administered medications for this visit. Medical History: PAST MEDICAL HISTORY Diagnosis Date - Acne - Snoring Surgical History: PAST SURGICAL HISTORY Procedure Laterality Date - BIOPSY BREAST 1992 left - BX BREAST PERC VACUUM/ROTN 01/04/10 Left 12 oclock - COLONOSCOP W/ OR W/O [facility] SPEC 04/11/14 normal Colon - EGD W/O [facility] SPECIMEN W/BX 04/11/14 gastritis - REMOVE TONSILS/ADENOIDS,<12 Y/O Current Tx Plan Includes: Weight Bearing Status: yes PHYSICAL EXAM: left ankle Physical examination reveals an alert and oriented patient who is in no acute distress while sitting and is of normal mood and affect. Gait Cycle: Normal Yes, Limp: antalgic: none. Inspection: Alignment: neutral Symmetry: Swelling: yes. Redness: no. Ecchymosis: no Effusion: 0 Palpation: Warmth: no, Tenderness:Yes: Ankle: Peroneal Tendon ROM: Ankle- Normal. Strength: 5 Stability: Ligamentous instability: no Specialized Tests: negative Neurologic Status: normal. Vascular Status: normal Skin: Normal Right Upper Extremities:No gross abnormalities Left Upper Extremities:No gross abnormalities X-RAY: None new today. DX: (M25.572) Acute left ankle pain (primary encounter diagnosis) PLAN: On physical exam, there is tenderness in the peroneal tendons as well as swelling in the ankle. The tendons of the ankle appear to be functioning properly. She may engage in PT to rehabilitate the ankle. I will order an MRI to render a more accurate diagnosis and assess proper treatment options. Return to clinic to discuss MRI results HPI explored in detail with patient and edited as necessary. At the conclusion of the visit the patient voiced understanding and agreement with the plan. The patient knows to call us or present to the nearest Emergency Department if the patients pain increases. Patient knows how to reach us if there are any questions or problems. This note was partially generated using [employer] voice recognition system, and there may be some incorrect words, spellings, and punctuation that were not noted in checking the note before saving. Scribe Attestation: By signing my name below, I, Bob Wilkerson, attest that this documentation has been prepared under the direction and in the presence of Flavio Childers M.D. Electronically Signed:quinten Goodman, October 29, 2018 9:08 AM Provider Attestation: I, Flavio Childers M.D., personally performed the services described in this documentation. All medical record entries made by the scribe were at my direction and in my presence. I have reviewed the chart and discharge instructions (if applicable) and agree that the record reflects my personal performance and is accurate and complete. Flavio Childers MD October 29, 2018 9:08 AM Normal [facility] CR-Foot min 3 Views IMPORTon 09-04-2018 CR-Foot min 3 Views IMPORT Images were obtained outside of [facility] [id number] Normal [facility] CR-Knee 4 or More Views IMPO RTon 09-04-2018 CR-Knee 4 or More Views IMPORT Images were obtained outside of [facility] [id number] Normal [facility] CNOVon 06-28-2018 CNOV Office Visit (ORAVON ) SIRISHA ROMERO ([id number]) 1965 F Date Time Provider Department 06/28/18 11:45 AM FLAVIO CHILDERS During your visit today, we recorded the following information about you: Flavio Childers MD 06/28/2018 2:54 PM Signed Sirisha Romero returns today to follow up Left foot 5 months s/p repair left peroneus brevis tendon, peroneal tenosynovectomy, deepening of fibular groove, repair superior peroneal retinaculum, application of flow graft allograft, stress exam under fluoroscopy monitored by surgeon on 02/04/18. She complains of soreness on the medial and lateral foot. Has tingling in her toes 2-4. The sharp stabbing pain she was feeling is now resolved. She has been in regular shoes for 2 months. She is attending PT once a week, doing aquatic therapy, as well as exercising at home. Has been slowly progressing her activity and getting back to dancing. Do you have a metal allergy?: No Current Dx: (Z98.890) Postoperative state (primary encounter diagnosis) (S93.05XD) Subluxation of peroneal tendon of left foot, subsequent encounter (M77.42) Metatarsalgia of left foot Injury:No Pt. Feels their overall condition is better. Is the patient having any pain? No 0 on a scale of 0 to 10 Current treatment plan includes: Weight Bearing Status: full in shoes Weight bearing status:Full Ambulatory Aids:N/A Physical Therapy:No Home Exercise Program: No NSAIDS: Not taking Pain medication: None Activity Levels: Normal PHYSICAL EXAM: Left foot Physical examination reveals an alert and oriented patient who is in no acute distress while sitting and is of normal mood and affect. LMP 04/24/2015 Flavio Childers MD 06/28/2018 2:[address] : [place] [id number] [facility] [id number] Sirisha is now >4 months status post ARTHROTOMY ANKLE W/ SYNOVECTOMY AND TENOSYNOVECTOMY. Patient has a pain level of 0 Do you have a metal allergy?: No Vital Signs: LMP 04/24/2015 Current Medication: No current outpatient medications on file. No current facility-administered medications for this visit. Medical History: PAST MEDICAL HISTORY Diagnosis Date - Acne - Snoring Surgical History: PAST SURGICAL HISTORY Procedure Laterality Date - BIOPSY BREAST 1992 left - BX BREAST PERC VACUUM/ROTN 01/04/10 Left 12 oclock - COLONOSCOP W/ OR W/O [facility] SPEC 04/11/14 normal Colon - EGD W/O [facility] SPECIMEN W/BX 04/11/14 gastritis - REMOVE TONSILS/ADENOIDS,<12 Y/O Current Tx Plan Includes: Weight Bearing Status: as tolerated PHYSICAL EXAM: left foot Physical examination reveals an alert and oriented patient who is in no acute distress while sitting and is of normal mood and affect. Gait Cycle: Normal Yes, Limp: none. Inspection: Alignment: neutral Symmetry: Swelling: yes.Mid and forefoot Redness: no. Ecchymosis: no Effusion: 0 Palpation: Warmth: no, Tenderness:No ROM: Foot- Extension, MTP: 60 Strength: 5 Stability: Ligamentous instability: no Specialized Tests: negative Neurologic Status: normal. Vascular Status: normal Skin: Normal Right Upper Extremities:No gross abnormalities Left Upper Extremities:No gross abnormalities X-RAY: See prior. DX: (Z98.890) Postoperative state (primary encounter diagnosis) (S93.05XD) Subluxation of peroneal tendon of left foot, subsequent encounter (M77.42) Metatarsalgia of left foot PLAN: Physical exam reveals that healing is complete and that rehabilitation is progressing well. She will wear compression stockings to manage swelling and desensitize the foot. Continue with PT, focusing on strengthening exercises and circular movement to improve [id number] motion of the foot. She should also work to improve ROM at the 1st MTP joint. I am hopeful that this will increase her comfort upon toe-off. She may continue biking and swimming for aerobic exercise. Return to clinic PRN. HPI explored in detail with patient and edited as necessary. At the conclusion of the visit the patient voiced understanding and agreement with the plan. The patient knows to call us or present to the nearest Emergency Department if the patients pain increases. Patient knows how to reach us if there are any questions or problems. This note was partially generated using [employer] voice recognition system, and there may be some incorrect words, spellings, and punctuation that were not noted in checking the note before saving. TEACHING PHYSICIAN STATEMENT: I personally saw and evaluated the patient today. I personally obtained the ruby and critical portions of the history and physical exam. I reviewed the resident's/fellow's documentation and discussed the patient with the resident/fellow. I agree with the resident's/fellow's medical decision-making as documented. MD Quinten Marie Attestation: By signing my name below, I, Ramirez Madrid, attest that this documentation has been prepared under the direction and in the presence of Flavio Childers M.D. Electronically Signed:quinten Fleming, June 28, 2018 12:11 PM Provider Attestation: I, Flavio Childers M.D., personally performed the services described in this documentation. All medical record entries made by the jeevanibriley were at my direction and in my presence. I have reviewed the chart and discharge instructions (if applicable) and agree that the record reflects my personal performance and is accurate and complete. Flavio Childers M.D. June 28, 2018 12:11 PM Referring Provider: FLAVIO CHILDERS [[id number]] Allergies As of Date: 06/28/2018 (No Known Allergies) Date Reviewed: 06/28/2018 Reviewed by: Babita Springer Student - Fully Assessed Reason for Visit: Follow Up [171] Cmt: left foot Reason For Visit History Recorded Primary Visit Diagnosis:Postoperative state [Z98.890] Other Visit Diagnoses:Subluxation of peroneal tendon of left foot, subsequent encounter [S93.05XD] Metatarsalgia of left foot [M77.42] Problem List As Of Date 06/28/2018 Noted Resolved FAMILY HX BREAST MALIG [Z80.3] INVALID FOR* Microcalcifications of the Breast [R92.0] INVALID FOR* Diarrhea [R19.7] INVALID FOR*02/01/2018 Subluxation of peroneal tendon of left foot [S9*INVALID FOR* Postoperative state [Z98.890] INVALID FOR* Metatarsalgia of left foot [M77.42] INVALID FOR* Medications Discontinued During This Encounter cephALEXin (KEFLEX) 500 mg capsule 20 c* 0 02/03/2018 06/28/2018 Route: ORAL Sig: Take 1 capsule by mouth four times daily. Disc: Reason for discontinue is not on file. Encounter Status:Closed by FLAVIO CHILDERS MD on 06/28/18 Normal [facility] PROGRESSon 06-28-2018 PROGRESS HNO ID: [id number] Author: Flavio Childers Service: ? Author Type: Physician Type: Progress Notes Filed: 06/28/2018 2:54 PM Note Text: REFERRING [place]. : [place] [id number] [facility] [address] Sirisha is now >4 months status post ARTHROTOMY ANKLE W/ SYNOVECTOMY AND TENOSYNOVECTOMY. Patient has a pain level of 0 Do you have a metal allergy?: No Vital Signs: LMP 04/24/2015 Current Medication: No current outpatient medications on file. No current facility-administered medications for this visit. Medical History: PAST MEDICAL HISTORY Diagnosis Date - Acne - Snoring Surgical History: PAST SURGICAL HISTORY Procedure Laterality Date - BIOPSY BREAST 1993 left - BX BREAST PERC VACUUM/ROTN 01/04/10 Left 12 oclock - COLONOSCOP W/ OR W/O [facility] SPEC 04/11/14 normal Colon - EGD W/O [facility] SPECIMEN W/BX 04/11/14 gastritis - REMOVE TONSILS/ADENOIDS,<12 Y/O Current Tx Plan Includes: Weight Bearing Status: as tolerated PHYSICAL EXAM: left foot Physical examination reveals an alert and oriented patient who is in no acute distress while sitting and is of normal mood and affect. Gait Cycle: Normal Yes, Limp: none. Inspection: Alignment: neutral Symmetry: Swelling: yes.Mid and forefoot Redness: no. Ecchymosis: no Effusion: 0 Palpation: Warmth: no, Tenderness:No ROM: Foot- Extension, MTP: 60 Strength: 5 Stability: Ligamentous instability: no Specialized Tests: negative Neurologic Status: normal. Vascular Status: normal Skin: Normal Right Upper Extremities:No gross abnormalities Left Upper Extremities:No gross abnormalities X-RAY: See prior. DX: (Z98.890) Postoperative state (primary encounter diagnosis) (S93.05XD) Subluxation of peroneal tendon of left foot, subsequent encounter (M77.42) Metatarsalgia of left foot PLAN: Physical exam reveals that healing is complete and that rehabilitation is progressing well. She will wear compression stockings to manage swelling and desensitize the foot. Continue with PT, focusing on strengthening exercises and circular movement to improve gbbx-sq-[id number] motion of the foot. She should also work to improve ROM at the 1st MTP joint. I am hopeful that this will increase her comfort upon toe-off. She may continue biking and swimming for aerobic exercise. Return to clinic PRN. HPI explored in detail with patient and edited as necessary. At the conclusion of the visit the patient voiced understanding and agreement with the plan. The patient knows to call us or present to the nearest Emergency Department if the patients pain increases. Patient knows how to reach us if there are any questions or problems. This note was partially generated using [employer] voice recognition system, and there may be some incorrect words, spellings, and punctuation that were not noted in checking the note before saving. TEACHING PHYSICIAN STATEMENT: I personally saw and evaluated the patient today. I personally obtained the ruby and critical portions of the history and physical exam. I reviewed the resident's/fellow's documentation and discussed the patient with the resident/fellow. I agree with the resident's/fellow's medical decision-making as documented. MD Quinten Marie Attestation: By signing my name below, I, Ramirez Madrid, attest that this documentation has been prepared under the direction and in the presence of Flavio Childers M.D. Electronically Signed:quinten Fleming, June 28, 2018 12:11 PM Provider Attestation: I, Flavoi Childers M.D., personally performed the services described in this documentation. All medical record entries made by the quinten were at my direction and in my presence. I have reviewed the chart and discharge instructions (if applicable) and agree that the record reflects my personal performance and is accurate and complete. Flavio Childers M.D. June 28, 2018 12:11 PM Normal [facility] PROGRESS HNO ID: [id number] Author: Flavio Childers Service: ? Author Type: Physician Type: Progress Notes Filed: 06/28/2018 2:54 PM Note Text: Sirisha Romero returns today to follow up Left foot 5 months s/p repair left peroneus brevis tendon, peroneal tenosynovectomy, deepening of fibular groove, repair superior peroneal retinaculum, application of flow graft allograft, stress exam under fluoroscopy monitored by surgeon on 02/04/18. She complains of soreness on the medial and lateral foot. Has tingling in her toes 2-4. The sharp stabbing pain she was feeling is now resolved. She has been in regular shoes for 2 months. She is attending PT once a week, doing aquatic therapy, as well as exercising at home. Has been slowly progressing her activity and getting back to dancing. Do you have a metal allergy?: No Current Dx: (Z98.890) Postoperative state (primary encounter diagnosis) (S93.05XD) Subluxation of peroneal tendon of left foot, subsequent encounter (M77.42) Metatarsalgia of left foot Injury:No Pt. Feels their overall condition is better. Is the patient having any pain? No 0 on a scale of 0 to 10 Current treatment plan includes: Weight Bearing Status: full in shoes Weight bearing status:Full Ambulatory Aids:N/A Physical Therapy:No Home Exercise Program: No NSAIDS: Not taking Pain medication: None Activity Levels: Normal PHYSICAL EXAM: Left foot Physical examination reveals an alert and oriented patient who is in no acute distress while sitting and is of normal mood and affect. LMP 04/24/2015 Normal [facility] PROGRESSon 05-17-2018 PROGRESS HNO ID: [id number] Author: Flavio Childers Service: ? Author Type: Physician Type: Progress Notes Filed: 05/17/2018 8:13 PM Note Text: REFERRING [place]. : [place] [id number] [facility] [id number] Sirisha is now >14 weeks status post arthrotomy ankle w/ synovectomy tenosynovectomy. Reports some pain in the forefoot. Denies tenderness over the tendon and no tendon subluxation. She has not noticed significant improvement in her foot and continues to experience swelling. Continues to attend PT to improve ROM and strength. She is also riding a stationary bike in PT. She has not been swimming. Reports having returned to work. Also reports being on her feet quite a bit more. Do you have a metal allergy?: No Vital Signs: LMP 04/24/2015 Current Medication: Current Outpatient Medications: cephALEXin (KEFLEX) 500 mg capsule Take 1 capsule by mouth four times daily. Disp: 20 capsule Rfl: 0 No current facility-administered medications for this visit. Medical History: PAST MEDICAL HISTORY Diagnosis Date - Acne - Snoring Surgical History: PAST SURGICAL HISTORY Procedure Laterality Date - BIOPSY BREAST 1993 left - BX BREAST PERC VACUUM/ROTN 01/04/10 Left 12 oclock - COLONOSCOP W/ OR W/O BRSH SPEC 04/11/14 normal Colon - EGD W/O BRSH SPECIMEN W/BX 04/11/14 gastritis - REMOVE TONSILS/ADENOIDS,<12 Y/O Current Tx Plan Includes: Weight Bearing Status: Full PHYSICAL EXAM: left foot, Visualized her foot on this virtual visit today and had her point to the area where she is sore which is basically the distal aspect of the first and second metatarsal Physical examination reveals an alert and oriented patient who is in no acute distress while sitting and is of normal mood and affect. Symmetry: Swelling: no. Redness: no. Ecchymosis: no Skin: Incision: well healed, clean, dry and intact X-RAY: None today. DX: (Z98.890) Postoperative state (primary encounter diagnosis) (S93.05XD) Subluxation of peroneal tendon of left foot, subsequent encounter (M77.42) Metatarsalgia of left foot PLAN: I suggest a repeat physical exam to determine the cause of her forefoot pain. While this might be due to residual inflammation from the procedure, it is likely that it subsided while she was casted. I advised that it is normal to experience swelling when applying pressure to the foot after casting until the strength, endurance, and proprioception normalize. She will undergo pool therapy to recondition the foot without stressing it. She will also continue with PT, which will include theraband exercises. Once the foot is reconditioned, she may rebuild her endurance for ambulation. Return to clinic in 6-8 weeks for a repeat physical exam. She may cancel the appointment if she is asymptomatic by that time. HPI explored in detail with patient and edited as necessary. At the conclusion of the visit the patient voiced understanding and agreement with the plan. The patient knows to call us or present to the nearest Emergency Department if the patients pain increases. Patient knows how to reach us if there are any questions or problems. This note was partially generated using [employer] voice recognition system, and there may be some incorrect words, spellings, and punctuation that were not noted in checking the note before saving. Jeevanibe Attestation: By signing my name below, I, Ramirez Madrid, attest that this documentation has been prepared under the direction and in the presence of Flavio Childers M.D. Electronically Signed:quinten Fleming, May 17, 2018 2:39 PM Provider Attestation: I, Flavio Childers M.D., personally performed the services described in this documentation. All medical record entries made by the scribe were at my direction and in my presence. I have reviewed the chart and discharge instructions (if applicable) and agree that the record reflects my personal performance and is accurate and complete. Flavio Childers M.D. May 17, 2018 2:39 PM Normal [facility] PROGRESSon 04-28-2018 PROGRESS HNO ID: [id number] Author: Flavio Childers Service: (none) Author Type: Physician Type: Progress Notes Filed: 04/29/2018 5:16 AM Note Text: REFERRING [place]. : [place] [address] [facility] [address] Sirisha is now 12 weeks status post ARTHROTOMY ANKLE W/ SYNOVECTOMY AND TENOSYNOVECTOMY (Left), REPAIR TENDON EXTREMITY LOWER FLEXOR TENDON (Left), REPAIR TENDON PERONEAL (Left). She reports swelling with weightbearing in boot, but she is not currently wearing compression stockings. Experiences significant pain and swelling with exercise. She is currently performing band-stretching exercises once per week only at physical therapy, which exacerbate her pain. However, she reports being able to ride a stationary bike without pain. Do you have a metal allergy?: No Vital Signs: LMP 04/24/2015 Current Medication: Current Outpatient Prescriptions: cephALEXin (KEFLEX) 500 mg capsule Take 1 capsule by mouth four times daily. Disp: 20 capsule Rfl: 0 No current facility-administered medications for this visit. Medical History: PAST MEDICAL HISTORY Diagnosis Date - Acne - Snoring Surgical History: PAST SURGICAL HISTORY Procedure Laterality Date - BIOPSY BREAST 1993 left - BX BREAST PERC VACUUM/ROTN 01/04/10 Left 12 oclock - COLONOSCOP W/ OR W/O BRS SPEC 04/11/14 normal Colon - EGD W/O BRSH SPECIMEN W/BX 04/11/14 gastritis - REMOVE TONSILS/ADENOIDS,<12 Y/O Current Tx Plan Includes: Weight Bearing Status: Weightbearing in boot and Ambulatory Aids: a brace PHYSICAL EXAM: left ankle, Virtual visit Physical examination reveals an alert and oriented patient who is in no acute distress while sitting and is of normal mood and affect. Gait Cycle: Difficult to observe on virtual visit Symmetry: Swelling: no. Redness: no. Ecchymosis: no ROM: Ankle- Normal. X-RAY: None today. DX: (Z98.890) Postoperative state (primary encounter diagnosis) (S93.05XD) Subluxation of peroneal tendon of left foot, subsequent encounter PLAN: I advised the patient that swelling and weakness are typical with transition from NWB to weightbearing. She must continue to recondition the foot with PT in order to return to normal weightbearing. She should perform band-stretching exercises once per day, ROM exercises, stretching, and ride a stationary bike in PT and at home. Patient may continue these exercises despite swelling provided that she quickly recovers from it. She should also regularly ice and elevate the ankle. She also needs to wear her compression stockings on a daily basis Repeat virtual visit in 4 weeks HPI explored in detail with patient and edited as necessary. At the conclusion of the visit the patient voiced understanding and agreement with the plan. The patient knows to call us or present to the nearest Emergency Department if the patients pain increases. Patient knows how to reach us if there are any questions or problems. This note was partially generated using [employer] voice recognition system, and there may be some incorrect words, spellings, and punctuation that were not noted in checking the note before saving. Scribe Attestation: By signing my name below, I, Ramirez Madrid, attest that this documentation has been prepared under the direction and in the presence of Flavio Childers M.D. Electronically Signed:quinten Fleming, April 28, 2018 5:20 PM Provider Attestation: I, Flavio Childers M.D., personally performed the services described in this documentation. All medical record entries made by the quinten were at my direction and in my presence. I have reviewed the chart and discharge instructions (if applicable) and agree that the record reflects my personal performance and is accurate and complete. Flavio Childers M.D. April 28, 2018 5:20 PM Normal [facility] PROGRESSon 03-22-2018 PROGRESS HNO ID: [id number] Author: Flavio Childers Service: (none) Author Type: Physician Type: Progress Notes Filed: 03/22/2018 6:29 PM Note Text: REFERRING DR. : [place] [address] [facility] [address] Sirisha is now >6 weeks status post Procedure: repair left peroneus brevis tendon, peroneal tenosynovectomy, deepening of fibular groove, repair superior peroneal retinaculum, application of flow graft allograft, stress exam under fluoroscopy monitored by surgeon on 02/04/18. She reports that the ankle is improving. She has not yet begun PT. Do you have a metal allergy?: No Vital Signs: LMP 04/24/2015 Current Medication: Current Outpatient Prescriptions: cephALEXin (KEFLEX) 500 mg capsule Take 1 capsule by mouth four times daily. Disp: 20 capsule Rfl: 0 No current facility-administered medications for this visit. Medical History: PAST MEDICAL HISTORY Diagnosis Date - Acne - Snoring Surgical History: PAST SURGICAL HISTORY Procedure Laterality Date - BIOPSY BREAST 1993 left - BX BREAST PERC VACUUM/ROTN 01/04/10 Left 12 oclock - COLONOSCOP W/ OR W/O [facility] SPEC 04/11/14 normal Colon - EGD W/O [facility] SPECIMEN W/BX 04/11/14 gastritis - REMOVE TONSILS/ADENOIDS,<12 Y/O Current Tx Plan Includes: Weight Bearing Status: NWB PHYSICAL EXAM: left ankle Physical examination reveals an alert and oriented patient who is in no acute distress while sitting and is of normal mood and affect. Gait Cycle: Normal No, Limp: non-weight bearing. Inspection: Alignment: neutral Symmetry: Swelling: no. Redness: no. Ecchymosis: no ROM: Ankle- Normal. Skin: Incision: well healed, clean, dry and intact Right Upper Extremities:No gross abnormalities Left Upper Extremities:No gross abnormalities X-RAY: None today. DX: (S93.05XD) Subluxation of peroneal tendon of left foot, subsequent encounter (primary encounter diagnosis) (Z98.890) Postoperative state PLAN: She will begin weightbearing in a boot and begin PT to recondition. She may increase weightbearing by 10 lbs/day in the boot provided she remains pain-free. She may wean from the boot in as early as 4 weeks provided she makes satisfactory progress. She will return in 6 weeks. HPI explored in detail with patient and edited as necessary. At the conclusion of the visit the patient voiced understanding and agreement with the plan. The patient knows to call us or present to the nearest Emergency Department if the patients pain increases. Patient knows how to reach us if there are any questions or problems. This note was partially generated using [employer] voice recognition system, and there may be some incorrect words, spellings, and punctuation that were not noted in checking the note before saving. Scribe Attestation: By signing my name below, I, Ramirez Madrid, attest that this documentation has been prepared under the direction and in the presence of Flavio Childers M.D. Electronically Signed:quinten Fleming, March 22, 2018 5:47 PM Provider Attestation: I, Flavio Childers M.D., personally performed the services described in this documentation. All medical record entries made by the jeevanibriley were at my direction and in my presence. I have reviewed the chart and discharge instructions (if applicable) and agree that the record reflects my personal performance and is accurate and complete. Flavio Childers M.D. March 22, 2018 5:47 PM Normal [facility] [place] 03-10-2018 EVY Telephone (BRIGIDAVMICHELLE) SIRISHA ROMERO ([id number]) 1965 F Date Time Provider Department 03/10/18 FLAVIO CHILDERS During your visit today, we recorded the following information about you: Ciara Wilson 03/10/2018 11:57 AM Signed Patient calling regarding upcoming appt 03/17. Patient is requesting to schedule appointment at [place] office. Patient requesting call at [phone]. Please advise. Karina Anderson RN 03/10/2018 5:40 PM Signed Left message for patient that Dr. Childers does not go to [place] and we would not have anyone else assume care that Dr. Childers started. This was explained to her at her last visit. Her options are 03/19 at [place] which might be a little closer or keep 03/17. Karina Anderson RN Cristin Mccullough 03/11/2018 9:01 AM Signed Patient calling stating that she drives over one and a half hours for an appt. She stated that she doesn't have a cast ( just a split cast) and is hoping the dr can do a virtual appt instead. She stated that she is unable to make her 03-17 appt. She stated that she would like to see if the dr can mail the op report( and have released to [facility]. She hasn't been on MY CHART in some time). She stated that she feels better and would like to discuss further. Please advise Dena Ortega Psmirian 03/11/2018 9:42 AM Signed Patient called back stating the following: She is unable to come in for an appointment on 03/17 or 03/19. She is doing well and stated she does not need to be seen in the office (she has a split cast, so she does not need to have a cast removed). She would prefer a Virtual Visit if possible. E-mail has been verified with patient. Patient is also requesting a copy of the Operative Report to be mailed to her home address. Please call patient at her cell # [phone] to discuss, OK to leave a detailed message at her cell number. Yandy Guevara 03/11/2018 10:20 AM Addendum Noted. Patient called 30 minutes ago with that information. Will need to discuss with Dr. Childers if he is comfortable doing a Virtual visit for this postop visit. Dr. Childers returns to the office on Thursday to discuss. However, a physical examination may be required as she has had tendon repairs done. Yandy Guevara 03/16/2018 9:14 AM Signed Message sent to Dr. Childers to clarify if he is comfortable with a virtual visit, as he may request to do a physical exam in person. Sent message to patient on mychart. See mychart encounter on 03/16. Message sent to Dr. Childers. Closing this encounter as there has been multiple duplicated messages in this regards and Patient has been notified that we are waiting clarification from Dr. Childers Allergies As of Date: 03/10/2018 (No Known Allergies) Date Reviewed: 02/08/2018 Reviewed by: Karina Anderson RN - Fully Assessed Reason for Visit: Requesting Virtual appt./canceled Post appt. on 03/17/18 [Other] Reason For Visit History Recorded Prescriptions as of 03/10/2018 Sig: CEPHALEXIN 500 MG CAPSULE Take 1 capsule by mouth four * Problem List As Of Date 03/10/2018 Noted Resolved FAMILY HX BREAST MALIG [Z80.3] INVALID FOR* Microcalcifications of the Breast [R92.0] INVALID FOR* Diarrhea [R19.7] INVALID FOR*02/01/2018 Subluxation of peroneal tendon of left foot [S9*INVALID FOR* Postoperative state [Z98.890] INVALID FOR* Encounter Status:Closed by KARINA ANDERSON RN on 03/10/18 Normal [facility] CNCOon 03-03-2018 CNCO Letter Text [place] [address] [place], [place] [address] March 03, 2018 Sirisha Romero : 1965 This letter is to certify that Sirisha Romero Is a patient of mine at [facility]. She is permitted to return to work on 03/10/2018. She should be permitted to elevated her foot on a nearby chair as needed while at work. Flavio Childers M.D. This letter has been electronically signed to expedite processing Normal [facility] PROGRESSon 02-27-2018 PROGRESS HNO ID: [id number] Author: Flavio Childers Service: (none) Author Type: Physician Type: Progress Notes Filed: 02/27/2018 11:22 AM Note Text: Postoperative doing well Incision is well-healed and sutures removed Short leg nonweightbearing cast applied Follow-up in 4 weeks Flavio Childers M.D. [facility] PROGRESSon 02-25-2018 PROGRESS HNO ID: [id number] Author: Michael Blanco Cast Service: (none) Author Type: (none) Type: Progress Notes Filed: 02/25/2018 7:37 AM Note Text: PT ASSESSMENT - CASTING ROOM Sirisha presents for cast removal, suture removal and Application of cast. Applied short cast: to Left leg non-weight bearing Patient has been instructed in Care of cast.. Michael Blanco Cast Beeper: [id number] [facility] CNOVon 02-24-2018 CNOV Office Visit (ORAVON ) SIRISHA ROMERO ([id number]) 1965 F Date Time Provider Department 02/24/18 11:15 AM FLAVIO CHILDERS ORSUZETTE During your visit today, we recorded the following information about you: Flavio Childers MD 02/27/2018 11:22 AM Signed Postoperative doing well Incision is well-healed and sutures removed Short leg nonweightbearing cast applied Follow-up in 4 weeks Flavio Childers M.D. Referring Provider: FLAVIO CHILDERS [[id number]] Allergies As of Date: 02/24/2018 (No Known Allergies) Date Reviewed: 02/08/2018 Reviewed by: Karina Anderson RN - Fully Assessed Primary Visit Diagnosis:Subluxation of peroneal tendon of left foot, subsequent encounter [S93.05XD] Other Visit Diagnosis:Postoperative state [Z98.890] Prescriptions as of 02/24/2018 Sig: CEPHALEXIN 500 MG CAPSULE Take 1 capsule by mouth four * Problem List As Of Date 02/24/2018 Noted Resolved FAMILY HX BREAST MALIG [Z80.3] INVALID FOR* Microcalcifications of the Breast [R92.0] INVALID FOR* Diarrhea [R19.7] INVALID FOR*02/01/2018 Subluxation of peroneal tendon of left foot [S9*INVALID FOR* Encounter Status:Closed by FLAVIO CHILDERS MD on 02/27/18 [facility] CNOV Office Visit (ORAVON ) MELECIOSIRISHA L ([id number]) 1965 F Date Time Provider Department 02/24/18 10:45 AM CAST TECH SUZETTE ORMELLYON During your visit today, we recorded the following information about you: Michael Cummins 02/25/2018 7:37 AM Signed PT ASSESSMENT - CASTING ROOM Sirisha presents for cast removal, suture removal and Application of cast. Applied short cast: to Left leg non-weight bearing Patient has been instructed in Care of cast.. Michael Blanco Cast Beeper: [id number] Referring Provider: FLAVIO CHILDERS [[id number]] Allergies As of Date: 02/24/2018 (No Known Allergies) Date Reviewed: 02/08/2018 Reviewed by: Karina Anderson RN - Fully Assessed Reason for Visit: Procedure [88] Primary Visit Diagnosis:Subluxation of peroneal tendon of left foot, subsequent encounter [S93.05XD] Prescriptions as of 02/24/2018 Sig: CEPHALEXIN 500 MG CAPSULE Take 1 capsule by mouth four * Problem List As Of Date 02/24/2018 Noted Resolved FAMILY HX BREAST MALIG [Z80.3] INVALID FOR* Microcalcifications of the Breast [R92.0] INVALID FOR* Diarrhea [R19.7] INVALID FOR*02/01/2018 Subluxation of peroneal tendon of left foot [S9*INVALID FOR* Encounter Status:Closed by MICHAEL EM on 02/25/18 Normal [facility] CNCOon 02-15-2018 CNCO Letter [place] [address] [facility] [place], [place] [address] February 15, 2018 Re: Sirisha Romero : 1965 This letter is to certify that Sirisha Romero is a patient of mine at [facility]. She is about a week out from her foot surgery and after speaking with her on the phone today, I agree with her that return to work this week is not advised. She is still working on pain control, elevation and inability to be very mobile. I will see her on 02/24/18 and re-evaluate the return to work plan. Flavio Childers M.D. This letter has been electronically signed to expedite processing Normal [facility] CNOVon 02-11-2018 CNOV Office Visit (ORAVON ) SIRISHA ROMERO ([id number]) 1965 F Date Time Provider Department 02/11/18 9:00 AM CAST TECH SUZETTE PLATA During your visit today, we recorded the following information about you: Michael Blanco Cast 02/11/2018 10:13 AM Signed PT ASSESSMENT - CASTING ROOM Sirisha presents for cast removal. High anxiety Applied Bivalved cast to Left leg non-weight bearing Patient has been instructed to not remove bivalve and in Care of cast.. Michael Blanco Cast Beeper: [id number] Referring Provider: FLAVIO CHILDERS [[id number]] Allergies As of Date: 02/11/2018 (No Known Allergies) Date Reviewed: 02/08/2018 Reviewed by: Karina Anderson RN - Fully Assessed Reason for Visit: Procedure [88] Primary Visit Diagnosis:Subluxation of peroneal tendon of left foot, subsequent encounter [S93.05XD] Prescriptions as of 02/11/2018 Sig: CEPHALEXIN 500 MG CAPSULE Take 1 capsule by mouth four * Problem List As Of Date 02/11/2018 Noted Resolved FAMILY HX BREAST MALIG [Z80.3] INVALID FOR* Microcalcifications of the Breast [R92.0] INVALID FOR* Diarrhea [R19.7] INVALID FOR*02/01/2018 Subluxation of peroneal tendon of left foot [S9*INVALID FOR* Encounter Status:Closed by MICHAEL EM on 02/11/18 [facility] PROGRESSon 02-11-2018 PROGRESS HNO ID: [id number] Author: Michael Cummins Service: (none) Author Type: (none) Type: Progress Notes Filed: 02/11/2018 10:13 AM Note Text: PT ASSESSMENT - CASTING ROOM Sirisha presents for cast removal. High anxiety Applied Bivalved cast to Left leg non-weight bearing Patient has been instructed to not remove bivalve and in Care of cast.. Michael Blanco Cast Beeper: [id number] Normal [facility] [place] 02-09-2018 EVY Telephone (ORAVON) SIRISHA ROMERO ([id number]) 1965 F Date Time Provider Department 02/09/18 FLAVIO CHILDERS During your visit today, we recorded the following information about you: Lovely Mendoza Psr 02/09/2018 10:07 AM Signed Patient called the office today requesting a return phone call to discuss why her 03/17 cast visit is scheduled out 3 weeks when it should be every 2 weeks. Also patient is inquiring if it is okay for her to reschedule her 03/17 cast visit to [place] because it is closer to home. Please review. Karina Anderson RN 02/09/2018 10:13 AM Signed I wrote down for the family member scheduling the appointments to make two - one for 02/24 for cast change and suture removal and one for her 6 week appt on 03/17. Will call her to clarify. Karina Anderson RN 02/09/2018 1:49 PM Signed Talked to patient. Appointments were scheduled properly, adjust arrival time for the 03/17 appt. Karnia Wilson 02/10/2018 3:55 PM Signed Patient calling stating her cast is tight on the ball of her foot and she states it is crooked to the right. Patient states when she is walking with crutches her foot throbs. Patient would like to know if she can go to facility in [place] to have it checked? Patient requesting call at [phone] okay to leave message. Please advise. Dominick Nancy Delio 02/10/2018 5:15 PM Signed Patient is coming in tomorrow morning at 9am for a cast change. She appreciated the return call and voiced understanding the location is [place] [facility] Allergies As of Date: 02/09/2018 (No Known Allergies) Date Reviewed: 02/08/2018 Reviewed by: Karina Anderson RN - Fully Assessed Reason for Visit: Patient Request [[id number]] Prescriptions as of 02/09/2018 Sig: OXYCODONE-ACETAMINOPHEN 5 MG-* Take 1 tablet by mouth every * CEPHALEXIN 500 MG CAPSULE Take 1 capsule by mouth four * Problem List As Of Date 02/09/2018 Noted Resolved FAMILY HX BREAST MALIG [Z80.3] INVALID FOR* Microcalcifications of the Breast [R92.0] INVALID FOR* Diarrhea [R19.7] INVALID FOR*02/01/2018 Subluxation of peroneal tendon of left foot [S9*INVALID FOR* Encounter Status:Closed by KARINA ANDERSON RN on 02/09/18 [facility] PROGRESSon 02-09-2018 PROGRESS HNO ID: [id number] Author: Michael Blanco Cast Service: (none) Author Type: (none) Type: Progress Notes Filed: 02/09/2018 2:15 PM Note Text: PT ASSESSMENT - CASTING ROOM Sirisha presents for Application of cast. Applied short cast: to Left leg non-weight bearing Patient has been instructed in Care of cast.. Michael Blanco Cast Beeper: [id number] [facility] CNNURSEon 02-08-2018 CNNURSE Nurse Visit (ORAVON) SIRISHA ROMERO ([id number]) 1965 F Date Time Provider Department 02/08/18 2:00 PM NURSE ORTH [facility] GE[facility] PLATA During your visit today, we recorded the following information about you: Karina Anderson RN 02/08/2018 4:35 PM Signed POD #4 Procedure: repair left peroneus brevis tendon, peroneal tenosynovectomy, deepening of fibular groove, repair superior peroneal retinaculum, application of flow graft allograft, stress exam under fluoroscopy monitored by surgeon on 02/04/18 Doing well today, more comfortable than Thursday and Thursday, very little swelling Dressings: postop splint and dressings removed to check incision and replaced with short leg non weight bearing cast Incision: dry/intact/well-approximated, no redness Sutures: zipline dressing intact Drain: NA Left foot/ankle Pain: 0-3/10 Calf assessment: soft, non-tender, no complaints of pain Concerns: none currently Followup: at 2-3 weeks postop for cast change, wound check and suture/zipline removal Dr. Childers came in to see patient, discuss follow up care. Patient seen today under the direct supervision of Dr. Flavio Anderson RN ONC Referring Provider: FLAVIO CHILDERS [[id number]] Allergies As of Date: 02/08/2018 (No Known Allergies) Date Reviewed: 02/08/2018 Reviewed by: Karina Anderson RN - Fully Assessed Reason for Visit: Nurse Visit [792] Primary Visit Diagnosis:Subluxation of peroneal tendon of left foot, subsequent encounter [S93.05XD] Order(s):REMOVAL OF SUTURES [[id number]] Order #: [id number] Prescriptions as of 02/08/2018 Sig: OXYCODONE-ACETAMINOPHEN 5 MG-* Take 1 tablet by mouth every * CEPHALEXIN 500 MG CAPSULE Take 1 capsule by mouth four * Problem List As Of Date 02/08/2018 Noted Resolved FAMILY HX BREAST MALIG [Z80.3] INVALID FOR* Microcalcifications of the Breast [R92.0] INVALID FOR* Diarrhea [R19.7] INVALID FOR*02/01/2018 Subluxation of peroneal tendon of left foot [S9*INVALID FOR* Encounter Status:Closed by KARINA ANDERSON RN on 02/08/18 [facility] CNOVon 02-08-2018 CNOV Office Visit (ORAVON ) SIRISHA ROMERO ([id number]) 1965 F Date Time Provider Department 02/08/18 1:30 PM CAST TECH SUZETTEMICHELLE RAINEYMLELYMICHELLE During your visit today, we recorded the following information about you: Michael Blanco Cast 02/09/2018 2:15 PM Signed PT ASSESSMENT - CASTING ROOM Sirisha presents for Application of cast. Applied short cast: to Left leg non-weight bearing Patient has been instructed in Care of cast.. Michael Francis Cast Beeper: [id number] Referring Provider: FLAVIO CHILDERS [[id number]] Allergies As of Date: 02/08/2018 (No Known Allergies) Date Reviewed: 02/08/2018 Reviewed by: Karina Anderson RN - Fully Assessed Reason for Visit: Procedure [88] Primary Visit Diagnosis:Subluxation of peroneal tendon of left foot, subsequent encounter [S93.05XD] Prescriptions as of 02/08/2018 Sig: OXYCODONE-ACETAMINOPHEN 5 MG-* Take 1 tablet by mouth every * CEPHALEXIN 500 MG CAPSULE Take 1 capsule by mouth four * Problem List As Of Date 02/08/2018 Noted Resolved FAMILY HX BREAST MALIG [Z80.3] INVALID FOR* Microcalcifications of the Breast [R92.0] INVALID FOR* Diarrhea [R19.7] INVALID FOR*02/01/2018 Subluxation of peroneal tendon of left foot [S9*INVALID FOR* Encounter Status:Closed by MICHAEL EM on 02/09/18 [facility] PROGRESSon 02-08-2018 PROGRESS HNO ID: [id number] Author: Karina Anderson RN Service: (none) Author Type: (none) Type: Progress Notes Filed: 02/08/2018 4:35 PM Note Text: POD #4 Procedure: repair left peroneus brevis tendon, peroneal tenosynovectomy, deepening of fibular groove, repair superior peroneal retinaculum, application of flow graft allograft, stress exam under fluoroscopy monitored by surgeon on 02/04/18 Doing well today, more comfortable than Thursday and Thursday, very little swelling Dressings: postop splint and dressings removed to check incision and replaced with short leg non weight bearing cast Incision: dry/intact/well-approximated, no redness Sutures: zipline dressing intact Drain: NA Left foot/ankle Pain: 0-3/10 Calf assessment: soft, non-tender, no complaints of pain Concerns: none currently Followup: at 2-3 weeks postop for cast change, wound check and suture/zipline removal Dr. Childers came in to see patient, discuss follow up care. Patient seen today under the direct supervision of Dr. Flavio Anderson RN ONC [facility] ANES Sridhar 02-04-2018 ANES POST HNO ID: [id number] thor: Audra Aldridgeervice: AnesthesiologyAuthor Type: AnesthesiologistType: Anesthesia PostOpFiled: 02/04/2018 2:01 PMNote Text:POST ANESTHESIA EVALUATION NOTESERVICE DATE: 02/04/2018SERVICE TIME: 2:01 PMDOB: 1965Vitals: 02/04/1810Temp: 37.1 ?C (98.8 ?F) 36.4 ?C (97.5 ?F) 02/04/1810BP: 110/70 114/73 105/73 104/55 02/04/1810Pulse: 71 (!) 58 (!) 56 (!) 56 02/04/1810Resp: 16 18 16 16 02/04/1810SpO2: 100% 100% 100% 100%Validated Vital Signs: YesPOST ANES STATUS: No apparent anesthetic complications. The patient isappropriately hydrated with stable respiratory and cardiovascular status.Patient has safe and adequate airway control. The patient has appropriatepain relief and no significant post operative nausea or vomiting. Thepatient has achieved baseline mental status.Intra-Operative Events: No Significant Anesthesia EventsFurther assessment by Anesthesia Service: NoneOther Remarks:SIGNATURE: Audra Sanchez MD PATIENT NAME: Sirisha Ghosh AustenDATE: February 04, 2018 : 2:01 PM PAGER/CONTACT #: [facility] ANES PREOPon 02-04-2018 ANES PREOP HNO ID: [id number] thor: Audra Aldridgeervice: AnesthesiologyAuthor Type: AnesthesiologistType: Anesthesia PreOpFiled: 02/04/2018 6:39 AMNote Text:REGIONAL ANESTHESIOLOGY DAY OF SURGERY NOTEPATIENT NAME: Sirisha Ghosh AustenMRN: [id number]: 1965Procedure(s) (LRB):ARTHROTOMY ANKLE W/ SYNOVECTOMY AND TENOSYNOVECTOMY (Left)REPAIR TENDON EXTREMITY LOWER FLEXOR TENDON (Left)REPAIR DISLOCATING PERONEAL TENDONS/FIBULAR OSTEOTOMY (Left)ORIF FOOT TARSOMETATARSAL INCLUDES INTERNAL FIXATION (Left)Surgeon(s):Flavio ChildersEstimated body mass index is 18.24 kg/m? as calculated from the following: Height as of 02/01/18: 167.6 cm (5' 6 ). Weight as of 02/01/18: 51.3 kg (113 lb).ASA Class: 2Adequate NPO status: YesAllergies:ALLERGIESNo Known AllergiesAirway Assessment: MP 2; Neck ROM: Full ROM without neurologic symptoms;Airway Evaluation: No significant abnormalitiesDentition: Teeth intactsmall chipSymptoms of Sleep Apnea: DeniesMost recent lab results:Potassium 3.9 11/08/2008Creatinine 0.80 1/12/2015EKG:Vitals:There were no vitals filed for this visit.Previous Anesthesia: No history of adverse event Family history ofanesthetic problems: NoneAdditional Physical Exam:Lungs: Lungs clear to auscultation. Good diaphragmatic excursion.Cardiac: Normal S1 and S2; no rubs, no murmurs and no gallopsAdditional pertinent findings: N/AOther Medical Problems/ Important Considerations:Denies chest pain and SOB with exertion.Chronic Beta Billie medication administered within 24 hours: N/AAnesthetic risks, benefits, alternatives, personnel and consent discussed:YesPatient agrees to proceed: YesBlood Products: Not anticipated for this procedureAnesthetic Plan: General LMA; Standard ASA MonitorsPain Management Plan: Parenteral or Oral and Peripheral Nerve BlockEPIC Chart ReviewACTIVE PROBLEM LISTFamily History of Malignant Neoplasm of BreastMicrocalcifications of The BreastSubluxation of Peroneal Tendon of Left FootPAST MEDICAL HISTORYDiagnosis Date- Acne- SnoringPAST SURGICAL HISTORYProcedure Laterality Date- BIOPSY BREAST 1993 left- BX BREAST PERC VACUUM/ROTN 01/04/10 Left 12 oclock- COLONOSCOP W/ OR W/O BRSH SPEC 04/11/14 normal Colon- EGD W/O [facility] SPECIMEN W/BX 04/11/14 gastritis- REMOVE TONSILS/ADENOIDS,<12 Y/OFAMILY HISTORYProblem Relation Age of Onset- Ischemic Heart Disease Father- other (lung cancer) Father- Breast Cancer Mother- Diabetes Mother- Breast Cancer Maternal AuntSocial History:Social HistorySubstance Use Topics- Smoking status: Never Smoker- Smokeless tobacco: Never Used- Alcohol use NoNo current facility-administered medications on file prior to encounter.No current outpatient prescriptions on file prior to encounter.Inpatient medications reviewed in pSivida.I have interviewed and examined the patient. I have reviewed the medicalrecord and/or the pre-anesthesia evaluation, pertinent labs, and testresults.Significant changes in the patient's condition since the History andPhysical, not otherwise documented in primary service progress notes: Yes,minimal narcotic techniqueThis contains updated information obtained within 48 hours ofSurgery/Procedure.SIGNATURE : Audra Sanchez MD PATIENT NAME: Sirisha Ghosh AustenDATE: February 04, 2018 : 6:38 AM PAGER/CONTACT #: [facility] OPERATIVE NOon 02-04-2018 OPERATIVE NO HNO ID: [id number] thor: Flavio ChildersSerlaloe: Orthopaedic SurgeryAuthor Type: PhysicianType: Operative ReportFiled: 02/04/2018 10:15 AMNote Text:OPERATIVE REPORTLOG ID: [id number] Date: 02/04/2018Incision/Procedure Start Time: 8:25 AMIncision Close/Procedure End Time: 9:47 AMProcedure Performed: Procedure(s) (LRB):STRESS EXAMINATION UNDER FLUOROSCOPY LEFT FOOTREPAIR PERONEUS BREVIS TENDONPERONEAL TENOSYNOVECTOMYREPAIR DISLOCATING PERONEAL TENDONS BY DEEPENING OF FIBULAR GROOVEREPAIR SUPERIOR PERONEAL RETINACULUMSURGEON MONITORED FLUOROSCOPYAPPLICATION OF FLOW GRAFT ALLOGRAFTSurgeon(s)/Procedura list(s) and Compressor Station Engineer(s):Surgeon(s) and Role: * Flavio Childers - Primary * Andrez (Res) Hermes - Resident - AssistingPhysician Compressor Station Engineer: Sirisha (Sukhdeep) NicolaTonnyesthesia: GeneralPre-Operative Diagnosis: Subluxation of peroneal tendon of left foot,initial encounter [S93.05XA], torn Peroneus brevis tendon, tenosynovitisperoneus longus and brevis tendonsPost-Operative Diagnosis: As above, stable midfootEstimated Blood Loss: 0 mlDrains: NoneSpecimen: NoneComplications: NoneOperative Procedure:In the preoperative holding area the appropriate limb and site(s) weremarked. Sign in was performed with the operative team. Prophylactic IVantibiotics were administered. The patient was brought to the operatingroom, placed upon the operating table and given an anesthetic. Followingsuccessful levels of anesthesia, she was appropriately padded, positionedand secured to the table. We performed a stress examination of hermidfoot in particular previously injured Lisfranc tarsometatarsal injuredarea and could not find any evidence of instability while stressing in allplanes. We therefore made the determination that midfoot arthrodesis wasunnecessary. The surgical leg was then prepped and draped in the usualsterile fashion. An Esmarch bandage was utilized to exsanguinate the limband tourniquet raised on the thigh to 300 mmHg.An incision was made along the peroneal tendons beginning proximal to thetip of the lateral malleolus and extending along the posterior border ofthe lateral malleolus right along the course of the peroneal tendons andthen into the lateral hindfoot region again staying on course withperoneal tendons. Dissection was carried through skin and subcutaneoustissue. We entered the superior peroneal retinaculum and stayed such thatwe had to good layers of tissue to put back incising this along the courseof peroneal tendons proximal and distal to lateral malleolus. As we gotdistally and just at the posterior aspect of lateral malleolus it wasnoted that the sural nerve and anterior branch of the sural nerve was muchmore anterior than normal and we made sure to protect that throughout thecase. Tenosynovectomy was performed of the peroneal tendons. There wasalso some redundant muscle belly of the peroneus brevis tendon which wasdebrided to decrease the volume of space behind the lateral malleolus.Once we completed debridement we noted that the peroneus brevis was quiteflattened out somewhat attenuated medial to lateral and felt thatutilizing it would improve the patient's and result. We therefore used a3-0 FiberWire to repair the peroneus brevis tendon in running fashion.Once she was satisfied with the status of the tendons we then deepened thefibular groove by approximately 4 mm we utilized the bur rongeur and arasp to smooth this. We then assessed the tendons in and felt that theywere well behind the posterior border of the lateral malleolus. We thenrepaired the superior peroneal retinaculum in pants over vest type fashionwith a 2-0 PDS suture. We placed an 18-gauge angiocatheter along thetendons beneath the retinacular repair for later placement of flow graft.This obtains tissues were closed with 4-0 Vicryl and the skin was closedwith a zip line. We then injected the flow graft allograft. A sterilebulky dressing and posterior splint were applied and the patient was thentransported to the recovery room in good conditionThe RESIDENT and PA helped with all aspects of the case.SIGNATURE: Flavio Childers MD PATIENT NAME: Sirisha Ghosh AustenDATE: February 04, 2018 : 10:08 AM PHONE: [phone] [facility] NURSING PROGon 02-02-2018 Protein mass conc HNO ID: [id number]: Ciara (Rn) ELVIA Josephervice: NeurosurgeryAuthor Type: Registered NurseType: Nursing Progress NoteFiled: 02/02/2018 11:21 AMNote Text:PACC Nurse Progress NoteHistory AND Physical:PACC Visit Date: 02/01/2018Original HANDP Date: N/AED visit Date: N/AOutside HANDP Scanned Date: N/ALabs Within Last 6 Months:N/AImaging Within Last 12 Months:N/ACardiac Testing:N/ABMI Percentile (PEDS):N/ARisk Assessment:N/AAnesthesia Review:N/ANarrative:N/APre-op Considerations:N/AChart Check:Jeff Joseph RNNov2017 11:18 AM [facility] HISTORY PHYSICALon 8 HISTORY PHYSICAL HNO ID: [id number] Author: Rebeca Boothe (Pa) Service: (none) Author Type: Physician Compressor Station Engineer Type: HANDP Filed: 02/02/2018 10:09 AM Note Text: HISTORY AND PHYSICAL EXAMINATION SERVICE DATE: 02/01/2018 SERVICE TIME: 3:49 PM PRIMARY CARE PHYSICIAN: Richard Preston MD REASON FOR VISIT: Sirisha Romero is a 52 year old female who is scheduled for left ankle peroneal tendon repair, tendon subluxation with deepening of fibular groove and repair of superior peroneal retinaculum, stress exam and possible Lisfranc arthrodesis at the request of Dr. Flavio Childers for consultation. My final recommendation will be communicated back to the requesting physician by way of shared medical record or letter. The patient has the following: ACTIVE PROBLEM LIST Family History of Malignant Neoplasm of Breast Microcalcifications of The Breast Subluxation of Peroneal Tendon of Left Foot Subjective CHIEF COMPLAINT: left foot/ankle pain HPI: Sirisha Romero is a 52 year old female that presents c/o a several month history of left ankle pain that has not improved with time. +injury. Pain is constant and described as aching, sharp, stabbing and throbbing in nature. Pain does not radiate. Aggravating factors include walking. Alleviated by rest. Previous treatments include PT, pain meds and rest. Scheduled for left ankle peroneal tendon repair, tendon subluxation with deepening of fibular groove and repair of superior peroneal retinaculum, stress exam and possible Lisfranc arthrodesis on 02/04/18. Denies recent illness, fever or chills. PAST MEDICAL HISTORY Diagnosis Date - Acne - Snoring PAST SURGICAL HISTORY Procedure Laterality Date - BIOPSY BREAST 1993 left - BX BREAST PERC VACUUM/ROTN 01/04/10 Left 12 oclock - COLONOSCOP W/ OR W/O BRSH SPEC 04/11/14 normal Colon - EGD W/O BRSH SPECIMEN W/BX 04/11/14 gastritis - REMOVE TONSILS/ADENOIDS,<12 Y/O FAMILY HISTORY Problem Relation Age of Onset - Ischemic Heart Disease Father - other (lung cancer) Father - Breast Cancer Mother - Diabetes Mother - Breast Cancer Maternal Aunt SOCIAL HISTORY: Social History Marital status: Spouse name: Uriel Years of education: 12 Number of children: 0 Occupational History 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 ALLERGIES No Known Allergies REVIEW OF SYSTEMS: PAIN ASSESSMENT: General: No weight loss, malaise or fevers. Neuro: numbness in left toes; No history of TIAs, stroke, headaches, tremors, CHIEF NUCLEAR MEDICINE TECHNOLOGIST tumor, hemiplegia, paraplegia, quadriplegia. Respiratory: No history of current cough or dyspnea, or pneumonia in the past 6 weeks. No history of respiratory/pulmonary symptoms or problems. Cardiovascular: No history of HTN requiring medication, no history of angina, CHF, MD, cardiac surgery or stents. Denies rest pain, gangrene or revascularization/amputation for PVD. No history of cardiovascular symptoms or problems. GI: No history of GI symptoms or problems. No history of esophageal varices, recent ascites, or ETOH greater than 2 drinks per day. : No history of dysuria, frequency or incontinence,, stones or chronic kidney disease STAFFING COORDINATOR: Negative for abnormal vaginal bleeding, abnormal vaginal discharge. : Denies, Patient's last menstrual period was 04/24/2015. Endocrine: No history of diabetes. Has not taken steroids within the past 30 days. No history of endocrinological symptoms or problems. Hematology: No history of bleeding or clotting disorder. Pt is not taking anti-coagulation or platelet medications. No history of hematological symptoms or problems. Oncology: No history of CA metastasis, chemo within 30 days, or radiotherapy within 90 days. Has not lost 10% of body wt in 6 months. No history of oncological symptoms or problems. Psych: No history of psychiatric symptoms or problems. Musculoskeletal: See HPI; No back pain Skin: Negative for lesions, rash and itching. Objective PHYSICAL EXAM: VITALS: BP 92/58 Pulse 56 Temp (Src) 97.8 (Temporal Artery) Ht 5' 6 (1.68m) Wt 113 lb (51.3kg) SpO2 100% LMP 04/24/2015 BMI 18.25 kg/(m2). General: Alert and oriented, No acute distress, Healthy appearance Skin: Normal color, no rash, no lesions. HEENT: EOM, pupils equal, round and reactive., No carotid bruits Cardiovascular: Normal S1 AND S2, no rubs, murmurs or gallops. No JVD. Pulse regular. Lungs: Normal breath sounds, no wheezes or crackles., No chest deformities or chest wall tenderness. Abdomen: Soft, non-tender, no rigidity., No masses or organomegaly. Extremities: No deformity, no edema or tenderness, no joint swelling or clubbing. Neurological: Normal cognition and motor skills. Gait normal. No weakness or sensory deficit. Pulses: Carotid and radial pulses normal +2. Diagnostic tests reviewed for today's visit: Lab Value Units Date High Low HB No results within date range. HCT No results within date range. WBC No results within date range. PLT No results within date range. NA No results within date range. K No results within date range. GLUC No results within date range. BUN No results within date range. CREAT No results within date range. PTSEC No results within date range. INR No results within date range. APTT No results within date range. ALT No results within date range. AST No results within date range. TBILI No results within date range. TSH No results within date range. Lab Value Units Date High Low HCGQT No results within date range. UHCG No results within date range. HCG, BODY* No results within date range. Lab Value Units Date High Low ABORHD No results within date range. ABSCREEN No results within date range. No results found for: HBA1C Most recent labs Most recent imaging All in [facility]/Care Everywhere Assessment ASSESSMENT There is no known pertinent medical condition which may affect paul-operative course METS: Run a short distance (8.00 METs) Patient denies any chest pain or undue shortness of breath with the above physical activity. ASA Class: 2 ANESTHESIA FINDINGS: Intubation History: No history of difficult intubation Significant Anesthesia Considerations: None and Difficult IV/Vein Access: NO Airway Exam: General: Normal appearance Mallampati Score is CLASS I ULBT: Class I - Lower incisors can bite the upper lip above the gretel line Neck: Normal appearance and function, Distance from hyoid to mentum during neck extension is at least 3 finger breaths Mouth: Normal tongue size and Mouth opening greater than 2 finger breaths Dentition: Intact Airway History: No history of difficult intubation STOP BANG Score: Criteria: Age over 50 (52 year old) Score = 1 PLAN This patient is optimally prepared for surgery. CONSULTS: Patient does not require consults for optimization at this time. The Following Tests/Procedures Have Been Initiated: Labs not indicated per PACC protocol, EKG not indicated per PACC protocol Planned Anesthetic: General Instructions Given to Patient: Patient given verbal and written preop instructions and voices comprehension and compliance. SIGNATURE: Rebeca Boothe PA-C PATIENT NAME: Sirisha Romero DATE: February 01, 2018 TIME: 3:49 PM PAGER/CONTACT #: Pedro [facility] [place] 01-01-2018 [facility] Telephone (ORQ) SIRISHA ROMERO ([id number]) 1965 F Date Time Provider Department 01/01/18 FLAVIO CHILDERS ORQ During your visit today, we recorded the following information about you: Lucy Santiago Psr 01/01/2018 3:11 PM Signed Patient called stating she had faxed over FMLA forms for Dr. Childers to fill out on 12/25/17 and would like to know if they have been received / completed. Please call patient at [phone] to advise, ok to leave a message Karina Anderson RN 01/04/2018 10:36 AM Signed I have forms. I am doing them in order of date and will work on them tomorrow. Karina Ramirez Psr 01/07/2018 3:33 PM Signed Patient is calling in regards to below message. Patient states her work is bugging her to find out how long she is going to be out for. Please advise. Arabellaluis Duarte Psr 01/14/2018 1:32 PM Addendum Patient is returning your call regarding FMLA forms. Please advise. initial time off: 02/04/18 - 02/17/18 intermittent leave time: 02/18/18 - 06/18/18 . You may also use the fax number that is on the form. Allergies As of Date: 01/01/2018 (No Known Allergies) Date Reviewed: 12/23/2017 Reviewed by: Yandy Guevara - Fully Assessed Reason for Visit: Forms [913] Problem List As Of Date 01/01/2018 Noted Resolved FAMILY HX BREAST MALIG [Z80.3] INVALID FOR* Microcalcifications of the Breast [R92.0] INVALID FOR* Diarrhea [R19.7] INVALID FOR* Subluxation of peroneal tendon of left foot [S9*INVALID FOR* Encounter Status:Closed by KARINA ANDERSON RN on 01/04/18 Normal [facility] HOSPon 12-25-2017 HOSP Patient:Sirisha Romero LMRN: Height:5' 6 (1.676 m)Weight:113 lb (51.256 kg)Outpatient Medications as of 02/04/18:oxyCODONE-acetaminop hen (PERCOCET) 5-325 mg tabletcephALEXin (KEFLEX) 500 mg capsuleAdmission/Clinic Administered Medications as of 02/04/18:scopolamine 1 mg over 3 days 1 Patch (TRANSDERM-SCOP)scopolamine - VERIFY patchscopolamine - REMOVE PATCHpromethazine 12.5 mg tab(s) (PHENERGAN)acetaminophen 650 mg tab(s) (TYLENOL)lactated ringers infusionlidocaine 10 mg/mL (1 %) 1-2 mg injection (XYLOCAINE)lactated ringers infusionceFAZolin iv piggyback 2 g in D5W (iso-osmotic) 100 mL (ANCEF)Problem List:Family history of malignant neoplasm of breast [Z80.3]Microcalcifications of the breast [R92.0]Subluxation of peroneal tendon of left foot [S93.05XA]Allergies:No Known AllergiesDate Verified:02/04/18Lab ValuesNo results within the last 30 days for the following basenames: K,HCTProgress Notes ([facility] REJ):Karina Anderson RN 02/03/2018 5:10 PM SignedRx for Percocet for postop pain use will be given to patient at the surgerycenter on the day of surgery.Rx for Keflex was electronically sent to patient's pharmacy by Dr. Childers.Patient was notified of the status of these medications and that these are forpost-op use.Karina Anderson RN ONCProgress Notes ([facility] REJ):Kaelyn Humphreys Psr 02/01/2018 12:59 PM SignedPatient called stating that she is needing to have Karina call her to discuss thefmla paperwork that was filled out for her. Please advise. Patient can bereached at [phone]. Ok to leave message. [facility] CNOVon 12-23-2017 CNOV Office Visit (BRIGID[place] ) SIRISHA ROMERO ([id number]) 1965 F Date Time Provider Department 12/23/17 2:00 PM FLAVIO CHILDERS During your visit today, we recorded the following information about you: Flavio Childers MD 12/23/2017 5:23 PM Signed New Patient Referring Physician: Richard Preston MD Sirisha Romero is a 52 year old female referred by Richard Preston MD for an office consultation for problems related to Left foot and ankle pain. She had injury to the left ankle that occurred on 05/15/17. She had two separate incidents, she had a large man fall back on her foot, stepping on her left foot. Then after that she stepped in a whole and sprained her ankle. This happened within one hour of of the first. Pain is located on the entire foot and ankle. Painful when walking, and at rest, unable to do a push off motion when walking due to pain. She experiencing ankle and lower leg tightness. She states she can feels a tendon rubbing over the lateral mal, when this occurs she has sharp stabbing pain. She was seen by a foot and ankle surgeon in [place], who she seen for 6 months and was finally diagnosed with lisfranc sprain in November. She had MRI done on the left foot in july, and then ankle which was done in November. Patient has had a couple different series of xrays done. Surgery was recommended to fix the lisfranc ligament. Patient would like to discuss further her surgical options. Pain varies depending on the day. Today pain is 6/10. Do you have a metal allergy?: No No current outpatient prescriptions on file. No current facility-administered medications for this visit. Allergies As of Date: 12/23/2017 (No Known Allergies) Fully Assessed 12/23/2017 PAST MEDICAL HISTORY Diagnosis Date - Acne - Snoring PAST SURGICAL HISTORY Procedure Laterality Date - BIOPSY BREAST 1992 left - BX BREAST PERC VACUUM/ROTN 01/04/10 Left 12 oclock - COLONOSCOP W/ OR W/O BRSH SPEC 04/11/14 normal Colon - EGD W/O BRSH SPECIMEN W/BX 04/11/14 gastritis - REMOVE TONSILS/ADENOIDS,<12 Y/O Occupation: [employer] -occupational requirements: standing Recreational Activities: none Activities restrictions as follows: none Location: Left foot Is the patient having any pain? Yes LOCATION: Left foot PAIN SCALE: 6 on a scale of 0-10 PAIN CHARACTER: aching DURATION: (How long have you had the pain?) 6 months FREQUENCY: (How often does the pain occur?) occurs constantly Pain Onset:associated with an incident, described as above Does the pain radiate? No Associated Factors: swelling Precipitating Factors: Standing and Walking Relieving Factors: resting Progression: Constant Previous Treatment as follows: none ROS: Have you had any problems or treatment of the following? If yes please describe. Head:No Eyes:No Ears, nose or throat: No Lungs: No Heart or blood pressure: No Stomach or Bowels: No Kidney or Bladder: No Female organs: No Nerve or mental illness: No DM: No Peripheral Vascular Disease: No Inflammatory Arthritis: No Other: no Bleeding Disorders: No FAMILY HISTORY: Has any member of your immediate family (parents or siblings) had this same problem? If so , who? and what? No SOCIAL HISTORY Marital Status: Tobacco: Non-smoker, never smoked Alcohol: None ------- WORKERS' COMPENSATION CLAIM Have you missed work for this problem? No If yes, what dates have you missed? Pending Litigation? No What tests have been done for this problem? X-Rays The patient's pertinent medical history from [facility] has been reviewed. PFOMIS forms have been reviewed. The patient's history of present illness has been confirmed. PHYSICAL EXAM: LEft foot Physical examination reveals an alert and oriented patient who is in no acute distress while sitting and is of normal mood and affect. LMP 04/24/2015 Gait Cycle: Normal Yes, Limp: none. Inspection: Alignment: neutral heel and neutral great toe Symmetry: Swelling: no. Redness: no. Ecchymosis: no Effusion: 0 Palpation: Warmth: no, Tenderness:Yes: Foot Peroneal Tendon, tenderness over the metatarsal shafts ROM: Ankle- Normal Foot- Normal. Strength: 5, able to perform 15 single toe rises without pain Stability: Ligamentous instability: no Specialized Tests: Single inversion heel rise: Able Neurologic Status: normal. Vascular Status: normal Skin: Normal Xrays L foot - no bony abnormalities, no signs of instability of the lisfranc complex MRI 07/2017 - edema in the lisfranc ligament, ligament intact, peroneus brevis tendonitis MRI 11/2017 - no edema in the lisfranc ligament, ligament intact Dx: (S93.05XA) Subluxation of peroneal tendon of left foot, initial encounter (primary encounter diagnosis) Plan: I have discussed with the patient in great detail today and her friend who is with her. She is able to do a series of 15-20, single calf raises exercises without any pain in her midfoot or forefoot. Peroneal tendon subluxation. In essence, though I do feel she has peroneal tendon injury inflammation and subluxation. At the current time since she is not tender at the tarsometatarsal articulations, but has more diffuse distal second, third and fourth metatarsal. I feel her midfoot injury has healed. I don't feel there is any instability at the Lisfranc articulation.therefore, with respect to elective surgery, discussed the following procedures I have discussed surgical and non-surgical methods of treatment with the patient. The natural history and course were discussed in relation to the options. Surgical risks, benefits, algorythm, post-operative course, and all possible outcomes were discussed in great detail. The patient will decide how they want to proceed. Procedure: Left ankle peroneal tendon repair, repair. Tendon subluxation with deepening of fibular groove and repair of superior peroneal retinaculum. We will also stress. Examination of the Lisfranc's joint and confirm stability if it is unstable, we will perform an arthrodesis The risks, benefits and anticipated outcomes of the procedure, the risks and benefits of the alternatives to the procedure, and the roles and tasks of the personnel to be involved, were discussed with the patient, and the patient consents to the procedure and agrees to proceed. Equipment needed for surgery: Mini C-arm, beanbag, Arthrex all suture anchors. Possible Synthes 4.0 cannulated screws, Synthes midfoot locking plates time required for surgery. 90 minutes HPI explored in detail with patient and edited as necessary. This note was partially generated using [employer] recognition system, and there may be some incorrect words, spellings, and punctuation that were not noted in checking the note before saving. MD Flavio Puentes M.D. 12/25/2017 10:29 AM Signed Addended by: QUAN GREENBERG on: 12/25/2017 10:29 AM Modules accepted: Orders Referring Provider: RAMIREZ RUELAS [[id number]] Allergies As of Date: 12/23/2017 (No Known Allergies) Date Reviewed: 12/23/2017 Reviewed by: Yandy Guevara - Fully Assessed Reason for Visit: New Patient [172] Cmt: Left foot and ankle Primary Visit Diagnosis:Subluxation of peroneal tendon of left foot, initial encounter [S93.05XA] Order(s):SURGICAL REQUEST - ELECTIVE [[id number]] Order #: [id number]: 1 Problem List As Of Date 12/23/2017 Noted Resolved FAMILY HX BREAST MALIG [Z80.3] INVALID FOR* Microcalcifications of the Breast [R92.0] INVALID FOR* Diarrhea [R19.7] INVALID FOR* Subluxation of peroneal tendon of left foot [S9*INVALID FOR* Follow-up and Disposition History Recorded Encounter Status:Closed by FLAVIO CHILDERS MD on 12/23/17 [facility] PROGRESSon 12-23-2017 PROGRESS HNO ID: [id number] Author: Flavio Childers Service: (none) Author Type: Physician Type: Progress Notes Filed: 12/23/2017 5:23 PM Note Text: New Patient Referring Physician: Richard Preston MD Sirisha Romero is a 52 year old female referred by Richard Preston MD for an office consultation for problems related to Left foot and ankle pain. She had injury to the left ankle that occurred on 05/15/17. She had two separate incidents, she had a large man fall back on her foot, stepping on her left foot. Then after that she stepped in a whole and sprained her ankle. This happened within one hour of of the first. Pain is located on the entire foot and ankle. Painful when walking, and at rest, unable to do a push off motion when walking due to pain. She experiencing ankle and lower leg tightness. She states she can feels a tendon rubbing over the lateral mal, when this occurs she has sharp stabbing pain. She was seen by a foot and ankle surgeon in [place], who she seen for 6 months and was finally diagnosed with lisfranc sprain in November. She had MRI done on the left foot in july, and then ankle which was done in November. Patient has had a couple different series of xrays done. Surgery was recommended to fix the lisfranc ligament. Patient would like to discuss further her surgical options. Pain varies depending on the day. Today pain is 6/10. Do you have a metal allergy?: No No current outpatient prescriptions on file. No current facility-administered medications for this visit. Allergies As of Date: 12/23/2017 (No Known Allergies) Fully Assessed 12/23/2017 PAST MEDICAL HISTORY Diagnosis Date - Acne - Snoring PAST SURGICAL HISTORY Procedure Laterality Date - BIOPSY BREAST 1992 left - BX BREAST PERC VACUUM/ROTN 01/04/10 Left 12 oclock - COLONOSCOP W/ OR W/O BRSH SPEC 04/11/14 normal Colon - EGD W/O BRSH SPECIMEN W/BX 04/11/14 gastritis - REMOVE TONSILS/ADENOIDS,<12 Y/O Occupation: [place] -occupational requirements: standing Recreational Activities: none Activities restrictions as follows: none Location: Left foot Is the patient having any pain? Yes LOCATION: Left foot PAIN SCALE: 6 on a scale of 0-10 PAIN CHARACTER: aching DURATION: (How long have you had the pain?) 6 months FREQUENCY: (How often does the pain occur?) occurs constantly Pain Onset:associated with an incident, described as above Does the pain radiate? No Associated Factors: swelling Precipitating Factors: Standing and Walking Relieving Factors: resting Progression: Constant Previous Treatment as follows: none ROS: Have you had any problems or treatment of the following? If yes please describe. Head:No Eyes:No Ears, nose or throat: No Lungs: No Heart or blood pressure: No Stomach or Bowels: No Kidney or Bladder: No Female organs: No Nerve or mental illness: No DM: No Peripheral Vascular Disease: No Inflammatory Arthritis: No Other: no Bleeding Disorders: No FAMILY HISTORY: Has any member of your immediate family (parents or siblings) had this same problem? If so , who? and what? No SOCIAL HISTORY Marital Status: Tobacco: Non-smoker, never smoked Alcohol: None WORKERS' COMPENSATION CLAIM Have you missed work for this problem? No If yes, what dates have you missed? Pending Litigation? No What tests have been done for this problem? X-Rays The patient's pertinent medical history from [facility] has been reviewed. PFOMIS forms have been reviewed. The patient's history of present illness has been confirmed. PHYSICAL EXAM: LEft foot Physical examination reveals an alert and oriented patient who is in no acute distress while sitting and is of normal mood and affect. LMP 04/24/2015 Gait Cycle: Normal Yes, Limp: none. Inspection: Alignment: neutral heel and neutral great toe Symmetry: Swelling: no. Redness: no. Ecchymosis: no Effusion: 0 Palpation: Warmth: no, Tenderness:Yes: Foot Peroneal Tendon, tenderness over the metatarsal shafts ROM: Ankle- Normal Foot- Normal. Strength: 5, able to perform 15 single toe rises without pain Stability: Ligamentous instability: no Specialized Tests: Single inversion heel rise: Able Neurologic Status: normal. Vascular Status: normal Skin: Normal Xrays L foot - no bony abnormalities, no signs of instability of the lisfranc complex MRI 07/2017 - edema in the lisfranc ligament, ligament intact, peroneus brevis tendonitis MRI 11/2017 - no edema in the lisfranc ligament, ligament intact Dx: (S93.05XA) Subluxation of peroneal tendon of left foot, initial encounter (primary encounter diagnosis) Plan: I have discussed with the patient in great detail today and her friend who is with her. She is able to do a series of 15-20, single calf raises exercises without any pain in her midfoot or forefoot. Peroneal tendon subluxation. In essence, though I do feel she has peroneal tendon injury inflammation and subluxation. At the current time since she is not tender at the tarsometatarsal articulations, but has more diffuse distal second, third and fourth metatarsal. I feel her midfoot injury has healed. I don't feel there is any instability at the Lisfranc articulation.therefore, with respect to elective surgery, discussed the following procedures I have discussed surgical and non-surgical methods of treatment with the patient. The natural history and course were discussed in relation to the options. Surgical risks, benefits, algorythm, post-operative course, and all possible outcomes were discussed in great detail. The patient will decide how they want to proceed. Procedure: Left ankle peroneal tendon repair, repair. Tendon subluxation with deepening of fibular groove and repair of superior peroneal retinaculum. We will also stress. Examination of the Lisfranc's joint and confirm stability if it is unstable, we will perform an arthrodesis The risks, benefits and anticipated outcomes of the procedure, the risks and benefits of the alternatives to the procedure, and the roles and tasks of the personnel to be involved, were discussed with the patient, and the patient consents to the procedure and agrees to proceed. Equipment needed for surgery: Mini C-arm, beanbag, Arthrex all suture anchors. Possible Synthes 4.0 cannulated screws, Synthes midfoot locking plates time required for surgery. 90 minutes HPI explored in detail with patient and edited as necessary. This note was partially generated using [employer] voice recognition system, and there may be some incorrect words, spellings, and punctuation that were not noted in checking the note before saving. MD Flavio Puentes M.D. Normal [facility] CNOVon 11-30-2017 CNOV Office Visit (PODIWS ) SIRISHA ROMERO ([id number]) 1965 F Date Time Provider Department 11/30/17 1:25 PM RAMIREZ RUELAS During your visit today, we recorded the following information about you: Ramirez Ruelas DPM 12/02/2017 7:15 AM Signed ? Ramirez Ruelas DPM Department of Podiatry [address] [facility] [address] Dept: [phone] Dept 11/30/2017 Initial Podiatric Office Visit: HPI: Sirisha Romero is a 52 year old female. Patient presents with:L foot and ankle pain for the past 6 months. She reports in May 2017 while dancing a large man fell and her stomped onto her L foot with his own foot. She immediately had pain. Then walking out to her car afterwards she stepped in a pothole and L ankle twisted. She just assumed she pulled muscle so she continued to walk on foot and ankle like a normal. A month later she was still having pain so she went to [facility] Urgent Care and xrays were normal. She continued to have pain so she went to another local basket braider, repeated xrays and was told that xray was normal. Patient again continued with pain and at patient's persistence she had MRI of foot and then later MRI of ankle. MRI + midfoot sprain and peroneal tendonosis. She was told she needs surgery. Pt is agreeable to surgery if necessary but would like to transfer care to [facility]. Patient complains of pain. Pain is rated at 8/10, and described as aching and is located in ankle. She c/o numbness and tingling in toes. Interventions include: boot immobilization, ankle brace, PT. The preliminary HPI obtained by the power tool repair technician was explained in detail with the patient and my findings have been incorporated in the documentation. Ramirez Ruelas DPM PCP: Richard Preston MD PAST MEDICAL HISTORY Diagnosis Date - Acne - Snoring Current Outpatient Prescriptions: amoxicillin (AMOXIL) 875 mg tablet Take 1 tablet by mouth twice daily for 10 days. No current facility-administered medications for this visit. 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 EYES: No diplopia or blurry vision. CARDIOVASCULAR: No chest pain, dyspnea, palpitations, orthopnea, PND, ankle edema. PULM: No dyspnea, unexplained cough. GI: No dysphagia/odynophagia, problematic reflux, constipation, diarrhea, changes in stool habits, hematochezia, melena. : No new urinary complaints, including dysuria, gross hematuria or pyuria. NEURO: No new balance problems, peripheral weakness/paresthesias or numbness of concern. MUSC-SKEL: L foot and ankle pain. PSY: No concerns regarding depression, anxiety or panic. INTEGUMENTARY: No new skin changes (rash, new or changing mole, new growth) Physical Exam: Constitutional: Pt is a well developed 52 year old female who is alert, oriented and cooperative Eyes: Following during examination. No redness or drainage. Respiratory: RR normal and nonlabored. Even breathing. No evidence of distress or shortness of breath. Psychology: Patient is engaged during conversation. Normal affect and mood. Does not appear depressed or anxious during encounter. Vascular: Dorsalis pedis and posterior tibial pulses palpable as b/l Capillary Fill time < 5 seconds to digits 1-5 b/l Skin temperature warm to warm proximal to distal b/l Hair growth present to digits Neurological: intact light touch/epicritic sensation intact protective sensation, insignificant neurological deficits Dermatological: Nails 1-5 b/l appear Normal. Webspaces clean and dry 1-4 b/l. Skin appears well hydrated and supple. good color, texture, turgor. Callosities absent.Open lesions absent. Wound: Not present. Musculoskeletal/Orthopaedic: Patient has pain to palpation of left midfoot along lateral left ankle at peroneal tendons Foot type is pronated structurally AJ ROM is full with knee extended and flexed 1st MPJ is full when loaded and no pain or crepitus are noted with ROM. MTJ, STJ are full and free of pain and crepitus. +5/5 muscle strength dorsiflexion, plantarflexion, inversion, eversion b/l Radiographs: xrays of left foot reviewed. No evidence of fracture or joint dislocation. MRI reviewed. There is sprain of left lisfranc joint but no dislocation noted. There is mild thickening of peroneal brevis ASSESSMENT: (S93.282A) Sprain of tarsometatarsal ligament of left foot, initial encounter (primary encounter diagnosis) (M76.72) Peroneal tendinitis of left lower extremity PLAN: 1. History and physical examination performed. 2. Patient was examined and informed of findings 3. She has pain along left lisfranc joint and left peroneal tendons. Past xrays do not show any disruption of lisfranc joint. Mri does indicate sprain however. She has been seen by another basket braider who recommended surgery, this according to patient. Patient informed of possible pinning of midfoot and debridement of peroneal tendon. Recommend updated xrays of left foot and ankle. Will have her return to boot and have her follow-up in 1-2 weeks to discuss xrays. 4. She does have flat foot. It is possible that some of her pain of midfoot could be stemming from flatfoot exacerbated by recent injury. 5. Will attempt to contact patient follow-up new xrays AMIE Ruffin RN 12/02/2017 7:15 AM Signed Per Sirisha Guzman provided with an airselect boot, size M, and instructed/educated in its application, wear, and care. All questions were answered, and patient was able to demonstrate competence with the necessary skills to utilize the above equipment. Patient signed [employer] MAST. Boot billed by [employer]. Rosalie Glass RN Referring Provider: SELF [[id number]] Allergies As of Date: 11/30/2017 (No Known Allergies) Date Reviewed: 11/30/2017 Reviewed by: Rosalie Glass RN - Fully Assessed Reason for Visit: New Patient [172] Primary Visit Diagnosis:Sprain of tarsometatarsal ligament of left foot, initial encounter [S93.622A] Other Visit Diagnosis:Peroneal tendinitis of left lower extremity [M76.72] Order(s):XR FOOT GENERAL 3V AP/LAT/OBL BILAT [[id number]] Order #: [id number] FUTURE XR ANKLE GENERAL 3V AP/LAT/OBL LT [[id number]] Order #: [id number] FUTURE Prescriptions as of 11/30/2017 Sig: AMOXICILLIN 875 MG TABLET Take 1 tablet by mouth twice * Problem List As Of Date 11/30/2017 Noted Resolved FAMILY HX BREAST MALIG [Z80.3] INVALID FOR* Microcalcifications of the Breast [R92.0] INVALID FOR* Diarrhea [R19.7] INVALID FOR* Encounter Status:Closed by RAMIREZ RUELAS DPM on 12/02/17 Normal [facility] PROGRESSon 11-30-2017 PROGRESS HNO ID: [id number] Author: Shanti Soto Service: (none) Author Type: (none) Type: Progress Notes Filed: 11/30/2017 3:06 PM Note Text: Radiology Service Progress Note PATIENT NAME: Sirisha Romero DATE OF SERVICE: November 30, 2017 TIME: 2:51 PM PATIENT IDENTITY VERIFICATION COMPLETED USING TWO (2) METHODS: Patient confirmed name verbally and Date of . PATIENT GENDER DATA: Female. status: : No status: NO. PATIENT RELEVANT IMPLANT DATA REVIEWED: Not Applicable RADIOLOGY DEPARTMENT: General X-ray: Exam(s) Completed: Lower Extremity X-Ray(s): Ankle, Left and Wt. Bearing and Feet, Bilateral and Wt. Bearing: PERIPHERAL IV DATA: Not applicable SIGNED BY: Shanti Soto November 30, 2017 2:51 PM [facility] PROGRESS HNO ID: [id number] Author: Rosalie lGass RN Service: (none) Author Type: (none) Type: Progress Notes Filed: 12/02/2017 7:15 AM Note Text: Per Dr. RuelasSirisha provided with an airselect boot, size M, and instructed/educated in its application, wear, and care. All questions were answered, and patient was able to demonstrate competence with the necessary skills to utilize the above equipment. Patient signed [employer] PPA. Boot billed by [employer]. Rosalie Glass RN Normal [facility] PROGRESS HNO ID: [id number] Author: Ramirez Ruelas Service: (none) Author Type: Physician Type: Progress Notes Filed: 12/02/2017 7:15 AM Note Text: ? Ramirez Ruelas DPM Department of Podiatry [address] [facility] [address] Dept: [phone] Dept 11/30/2017 Initial Podiatric Office Visit: HPI: Sirisha Romero is a 52 year old female. Patient presents with:L foot and ankle pain for the past 6 months. She reports in May 2017 while dancing a large man fell and her stomped onto her L foot with his own foot. She immediately had pain. Then walking out to her car afterwards she stepped in a pothole and L ankle twisted. She just assumed she pulled muscle so she continued to walk on foot and ankle like a normal. A month later she was still having pain so she went to [facility] Urgent Care and xrays were normal. She continued to have pain so she went to another local basket braider, repeated xrays and was told that xray was normal. Patient again continued with pain and at patient's persistence she had MRI of foot and then later MRI of ankle. MRI + midfoot sprain and peroneal tendonosis. She was told she needs surgery. Pt is agreeable to surgery if necessary but would like to transfer care to [facility]. Patient complains of pain. Pain is rated at 8/10, and described as aching and is located in ankle. She c/o numbness and tingling in toes. Interventions include: boot immobilization, ankle brace, PT. The preliminary HPI obtained by the power tool repair technician was explained in detail with the patient and my findings have been incorporated in the documentation. Ramirez Ruelas DPM PCP: Richard Preston MD PAST MEDICAL HISTORY Diagnosis Date - Acne - Snoring Current Outpatient Prescriptions: amoxicillin (AMOXIL) 875 mg tablet Take 1 tablet by mouth twice daily for 10 days. No current facility-administered medications for this visit. 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 EYES: No diplopia or blurry vision. CARDIOVASCULAR: No chest pain, dyspnea, palpitations, orthopnea, PND, ankle edema. PULM: No dyspnea, unexplained cough. GI: No dysphagia/odynophagia, problematic reflux, constipation, diarrhea, changes in stool habits, hematochezia, melena. : No new urinary complaints, including dysuria, gross hematuria or pyuria. NEURO: No new balance problems, peripheral weakness/paresthesias or numbness of concern. MUSC-SKEL: L foot and ankle pain. PSY: No concerns regarding depression, anxiety or panic. INTEGUMENTARY: No new skin changes (rash, new or changing mole, new growth) Physical Exam: Constitutional: Pt is a well developed 52 year old female who is alert, oriented and cooperative Eyes: Following during examination. No redness or drainage. Respiratory: RR normal and nonlabored. Even breathing. No evidence of distress or shortness of breath. Psychology: Patient is engaged during conversation. Normal affect and mood. Does not appear depressed or anxious during encounter. Vascular: Dorsalis pedis and posterior tibial pulses palpable as b/l Capillary Fill time < 5 seconds to digits 1-5 b/l Skin temperature warm to warm proximal to distal b/l Hair growth present to digits Neurological: intact light touch/epicritic sensation intact protective sensation, insignificant neurological deficits Dermatological: Nails 1-5 b/l appear Normal. Webspaces clean and dry 1-4 b/l. Skin appears well hydrated and supple. good color, texture, turgor. Callosities absent.Open lesions absent. Wound: Not present. Musculoskeletal/Orthopaedic: Patient has pain to palpation of left midfoot along lateral left ankle at peroneal tendons Foot type is pronated structurally AJ ROM is full with knee extended and flexed 1st MPJ is full when loaded and no pain or crepitus are noted with ROM. MTJ, STJ are full and free of pain and crepitus. +5/5 muscle strength dorsiflexion, plantarflexion, inversion, eversion b/l Radiographs: xrays of left foot reviewed. No evidence of fracture or joint dislocation. MRI reviewed. There is sprain of left lisfranc joint but no dislocation noted. There is mild thickening of peroneal brevis ASSESSMENT: (S93.062A) Sprain of tarsometatarsal ligament of left foot, initial encounter (primary encounter diagnosis) (M76.72) Peroneal tendinitis of left lower extremity PLAN: 1. History and physical examination performed. 2. Patient was examined and informed of findings 3. She has pain along left lisfranc joint and left peroneal tendons. Past xrays do not show any disruption of lisfranc joint. Mri does indicate sprain however. She has been seen by another basket braider who recommended surgery, this according to patient. Patient informed of possible pinning of midfoot and debridement of peroneal tendon. Recommend updated xrays of left foot and ankle. Will have her return to boot and have her follow-up in 1-2 weeks to discuss xrays. 4. She does have flat foot. It is possible that some of her pain of midfoot could be stemming from flatfoot exacerbated by recent injury. 5. Will attempt to contact patient follow-up new xrays Ramirez Ruelas DPM Normal [facility] XR ANKLE 3V AP/LAT/OBL LTon 11-30-2017 XR ANKLE 3V AP/LAT/OBL LT * * *Final Report* * * DATE OF EXAM: Nov 30 2017 3:06PM [id number] - XR ANKLE 3V AP/LAT/OBL LT / PROCEDURE REASON: Peroneal tendinitis, left leg * * * * Physician Interpretation * * * * . RIGHT ANKLE AND RIGHT FOOT AND LEFT FOOT: Indication: Pain no trauma. Views: AP, Lat, Oblique right ankle, AP lateral oblique right foot, AP lateral oblique left foot Comparison: None. Findings: There is no evidence for fracture or dislocation. Mild hallux valgus bilaterally. Early osteoarthritic change IMPRESSION: No acute spragger: [facility] Transcribe Date/Time: Nov 30 2017 3:09P Dictated by : LUPE SCHMIDT DO This examination was interpreted and the report reviewed and electronically signed by: LUPE SCHMIDT DO on Nov 30 2017 3:13PM EST [id number] Normal [facility] XR FOOT 3V AP/LAT/OBL BILon 11-30-2017 XR FOOT 3V AP/LAT/OBL HLEIO * * *Final Report* * * DATE OF EXAM: Nov 30 2017 3:06PM [id number] - XR FOOT 3V AP/LAT/OBL HELIO / PROCEDURE REASON: Sprain of tarsometatarsal ligament of left foot, initial encounter * * * * Physician Interpretation * * * * . RIGHT ANKLE AND RIGHT FOOT AND LEFT FOOT: Indication: Pain no trauma. Views: AP, Lat, Oblique right ankle, AP lateral oblique right foot, AP lateral oblique left foot Comparison: None. Findings: There is no evidence for fracture or dislocation. Mild hallux valgus bilaterally. Early osteoarthritic change IMPRESSION: No acute spragger: [facility] Transcribe Date/Time: Nov 30 2017 3:09P Dictated by : LUPE SCHMITD DO This examination was interpreted and the report reviewed and electronically signed by: LUPE SCHMIDT DO on Nov 30 2017 3:13PM EST [id number] Normal [facility] CNOVon 11-23-2017 CNOV Office Visit (UCWSTR ) SIRISHA ROMERO ([id number]) 1965 F Date Time Provider Department 11/23/17 8:15 AM CAMI ANDERSON (BRDA) JAIRO During your visit today, we recorded the following information about you: Temperature Pulse Respiration Blood pressure 97.6 degrees 70/minute 16/minute 110/60 Weight 48.1 kg Cami Anderson APRN.CNP 11/23/2017 9:21 AM Signed Subjective The history is provided by the patient. No russian language instructor was used. HPI Sirisha Romero is a 52 year old female who presents today for CC of sore throat and ear pain for the past 2 days, over the past 10 days she has had cough and congestion Alleviating/Treatment: No treatment or medications Aggravating: Swallowing Risk factors: Co workers ill BP 110/60 Pulse 70 Temp 36.4 ?C (97.6 ?F) (Tympanic) Resp 16 Wt 48.1 kg (106 lb) LMP 04/24/2015 BMI 17.11 kg/m? 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 Negative for chills and malaise/fatigue. HENT: Positive for congestion, sinus pain and sore throat. Negative for ear pain. Respiratory: Positive for cough. Negative for sputum production, shortness of breath and wheezing. Cardiovascular: Negative for chest pain. Musculoskeletal: Negative for myalgias. Skin: Negative for rash. Neurological: Positive for headaches. Objective Physical Exam Constitutional: She is well-developed, well-nourished, and in no distress. HENT: Head: Normocephalic and atraumatic. Right Ear: External ear and ear canal normal. Tympanic membrane is injected and retracted. Tympanic membrane is not erythematous and not bulging. A middle ear effusion (suppurative) is present. Left Ear: Tympanic membrane, external ear and ear canal normal. Tympanic membrane is not injected, not erythematous, not retracted and not bulging. No middle ear effusion. Nose: Mucosal edema and rhinorrhea present. Right sinus exhibits no maxillary sinus tenderness and no frontal sinus tenderness. Left sinus exhibits no maxillary sinus tenderness and no frontal sinus tenderness. Mouth/Throat: Uvula is midline and mucous membranes are normal. Posterior oropharyngeal erythema (mild) present. No oropharyngeal exudate, posterior oropharyngeal edema or tonsillar abscesses. Eyes: Pupils are equal, round, and reactive to light. Conjunctivae and EOM are normal. Neck: Normal range of motion. Cardiovascular: Normal rate, regular rhythm and normal heart sounds. Pulmonary/Chest: Effort normal and breath sounds normal. No respiratory distress. She has no decreased breath sounds. She has no wheezes. She has no rhonchi. She has no rales. Lymphadenopathy: Head (right side): No submental, no submandibular, no tonsillar, no preauricular and no posterior auricular adenopathy present. Head (left side): No submental, no submandibular, no tonsillar, no preauricular and no posterior auricular adenopathy present. She has no cervical adenopathy. Right cervical: No posterior cervical adenopathy present. Left cervical: No posterior cervical adenopathy present. Right: No supraclavicular adenopathy present. Left: No supraclavicular adenopathy present. Skin: Skin is warm and dry. Psychiatric: Affect normal. Nursing note and vitals reviewed. ASSESSMENT/PLAN: 1. Acute suppurative otitis media of right ear - ICD9: 382.00, ICD10: H66.001 (primary diagnosis) - Will begin treatment with Amoxicillin for 10 days - Follow up in one week if symptoms persist or worsen. - AMOXICILLIN 875 MG TABLET You can take an OTC probiotic such as Culturelle or Align to help with stomach upset/loose stool that you may get as a side effect of the antibiotic. GO TO THE ER IF: 1. You have a severe headache or pain around the ear. 2. You notice swelling around the ear. 3. You have a seizure (convulsion), twitching of the facial muscles, or passes out. 4. You are dizzy, have a stiff neck, or cannot walk or talk normally. 2. URI with cough and congestion - ICD9: 465.9, ICD10: J06.9 - Discussed viral etiology and rationale for treatment. Rest, nutritious diet, Motrin or Tylenol as needed for fever or pain. Salt water gargles, chloraseptic spray or lozenges as needed for sore throat. Nasal saline irrigation at least 2 x day. Drink at least 8 glasses of fluids per day that aren't caffeinated. Use a humidifier in your room at night. A cold normally lasts 7-10 days. If your symptoms are lasting longer, develop fever, or worsening by that time instead of improving then return to clinic or follow up with PCP for re-evaluation. 3. Sore throat - ICD9: 462, ICD10: J02.9 - suspect viral - Rapid Strep negative in the office today - Discussed supportive care treatment with fluids, rest and analgesia. - The patient may also use warm salt water gargles, throat lozenges and/or OTC throat spray as needed. - The patient should follow up in one week if symptoms persist or worsen - Call back if drooling, increased temperature, symptoms of dehydration and/or still sick in one week - RAPID STREP TEST B/O * Seek medical care immediately, call 911, go to ER if you have chest pain, difficulty breathing, shortness of breath, inability to swallow. Diagnosis and treatment plan were discussed and questions were answered to the patient's satisfaction. Pt acknowledged understanding of concepts and follow up plan. Specific signs and symptoms that would indicate the need for higher level of care were discussed in detail warranting prompt ER evaluation. Cami Anderson APRN.BRAD Anderson APRN.CNP 11/23/2017 8:52 AM Signed ASSESSMENT/PLAN: 1. Acute suppurative otitis media of right ear - ICD9: 382.00, ICD10: H66.001 (primary diagnosis) - Will begin treatment with Amoxicillin for 10 days - Follow up in one week if symptoms persist or worsen. - AMOXICILLIN 875 MG TABLET You can take an OTC probiotic such as Culturelle or Align to help with stomach upset/loose stool that you may get as a side effect of the antibiotic. GO TO THE ER IF: 1. You have a severe headache or pain around the ear. 2. You notice swelling around the ear. 3. You have a seizure (convulsion), twitching of the facial muscles, or passes out. 4. You are dizzy, have a stiff neck, or cannot walk or talk normally. 2. URI with cough and congestion - ICD9: 465.9, ICD10: J06.9 - Discussed viral etiology and rationale for treatment. Rest, nutritious diet, Motrin or Tylenol as needed for fever or pain. Salt water gargles, chloraseptic spray or lozenges as needed for sore throat. Nasal saline irrigation at least 2 x day. Drink at least 8 glasses of fluids per day that aren't caffeinated. Use a humidifier in your room at night. A cold normally lasts 7-10 days. If your symptoms are lasting longer, develop fever, or worsening by that time instead of improving then return to clinic or follow up with PCP for re-evaluation. 3. Sore throat - ICD9: 462, ICD10: J02.9 - suspect viral - Rapid Strep negative in the office today - Discussed supportive care treatment with fluids, rest and analgesia. - The patient may also use warm salt water gargles, throat lozenges and/or OTC throat spray as needed. - The patient should follow up in one week if symptoms persist or worsen - Call back if drooling, increased temperature, symptoms of dehydration and/or still sick in one week - RAPID STREP TEST B/O * Seek medical care immediately, call 911, go to ER if you have chest pain, difficulty breathing, shortness of breath, inability to swallow. Referring Provider: SELF [200] Allergies As of Date: 11/23/2017 (No Known Allergies) Date Reviewed: 11/23/2017 Reviewed by: Cami JeanBenjamin [facility] HospitalTherese Anderson - Fully Assessed Reason for Visit: Sore Throat [200] Cmt: fever, head congestion x 10 days, right ear pain x 2 days Reason For Visit History Recorded Primary Visit Diagnosis:Acute suppurative otitis media of right ear [H66.001] Other Visit Diagnoses:URI with cough and congestion [J06.9] Sore throat [J02.9] Order(s):RAPID STREP TEST B/O [6481031] Order #: [id number] amoxicillin (AMOXIL) 875 mg tabletTake 1 tablet by mouth twice daily for 10 days.Disp: 20 tabletRfl: 0 Prescriptions as of 11/23/2017 Sig: AMOXICILLIN 875 MG TABLET Take 1 tablet by mouth twice * Problem List As Of Date 11/23/2017 Noted Resolved FAMILY HX BREAST MALIG [Z80.3] INVALID FOR* Microcalcifications of the Breast [R92.0] INVALID FOR* Diarrhea [R19.7] INVALID FOR* Other instructions from your clinician: ASSESSMENT/PLAN: 1. Acute suppurative otitis media of right ear - ICD9: 382.00, ICD10: H66.001 (primary diagnosis) - Will begin treatment with Amoxicillin for 10 days - Follow up in one week if symptoms persist or worsen. - AMOXICILLIN 875 MG TABLET You can take an OTC probiotic such as Culturelle or Align to help with stomach upset/loose stool that you may get as a side effect of the antibiotic. GO TO THE ER IF: 1. You have a severe headache or pain around the ear. 2. You notice swelling around the ear. 3. You have a seizure (convulsion), twitching of the facial muscles, or passes out. 4. You are dizzy, have a stiff neck, or cannot walk or talk normally. 2. URI with cough and congestion - ICD9: 465.9, ICD10: J06.9 - Discussed viral etiology and rationale for treatment. Rest, nutritious diet, Motrin or Tylenol as needed for fever or pain. Salt water gargles, chloraseptic spray or lozenges as needed for sore throat. Nasal saline irrigation at least 2 x day. Drink at least 8 glasses of fluids per day that aren't caffeinated. Use a humidifier in your room at night. A cold normally lasts 7-10 days. If your symptoms are lasting longer, develop fever, or worsening by that time instead of improving then return to clinic or follow up with PCP for re-evaluation. 3. Sore throat - ICD9: 462, ICD10: J02.9 - suspect viral - Rapid Strep negative in the office today - Discussed supportive care treatment with fluids, rest and analgesia. - The patient may also use warm salt water gargles, throat lozenges and/or OTC throat spray as needed. - The patient should follow up in one week if symptoms persist or worsen - Call back if drooling, increased temperature, symptoms of dehydration and/or still sick in one week - RAPID STREP TEST B/O * Seek medical care immediately, call 911, go to ER if you have chest pain, difficulty breathing, shortness of breath, inability to swallow. Prescriptions ordered this encounter Disp Refills Start End AMOXICILLIN 875 MG TABLET 20 t* 0 11/23/2017 12/03/2017 Route: ORAL Sig: Take 1 tablet by mouth twice daily for 10 days. Letter Text Cami Anderson APRN.CNP Urgent Care [address] [facility] [address] Dept: [phone] 11/23/2017 Sirisha Romero [address] [place] [address] To Whom it May Concern: This is to certify that Sirisha Romero was seen at our office for medical care. Sirisha may return to work on 11.24.2017. If you have any questions please feel free to call. Sincerely: Cami Anderson APRN.CNP Encounter Status:Closed by CAMI ANDERSON CNP on 11/23/17 Normal [facility] MR-Lower Ext/No Jt/w/o IMPOR Ortega 11-23-2017 MR-Lower Ext/No Jt/w/o IMPORT Images were obtained outside of [facility] [id number] Normal [facility] PROGRESSon 11-23-2017 PROGRESS HNO ID: [id number] Author: Cami (Brad) Yazan Service: (none) Author Type: Nurse Practitioner Type: Progress Notes Filed: 11/23/2017 9:21 AM Note Text: Subjective The history is provided by the patient. No russian language instructor was used. HPI Sirisha Romero is a 52 year old female who presents today for CC of sore throat and ear pain for the past 2 days, over the past 10 days she has had cough and congestion Alleviating/Treatment: No treatment or medications Aggravating: Swallowing Risk factors: Co workers ill BP 110/60 Pulse 70 Temp 36.4 ?C (97.6 ?F) (Tympanic) Resp 16 Wt 48.1 kg (106 lb) LMP 04/24/2015 BMI 17.11 kg/m? 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 Negative for chills and malaise/fatigue. HENT: Positive for congestion, sinus pain and sore throat. Negative for ear pain. Respiratory: Positive for cough. Negative for sputum production, shortness of breath and wheezing. Cardiovascular: Negative for chest pain. Musculoskeletal: Negative for myalgias. Skin: Negative for rash. Neurological: Positive for headaches. Objective Physical Exam Constitutional: She is well-developed, well-nourished, and in no distress. HENT: Head: Normocephalic and atraumatic. Right Ear: External ear and ear canal normal. Tympanic membrane is injected and retracted. Tympanic membrane is not erythematous and not bulging. A middle ear effusion (suppurative) is present. Left Ear: Tympanic membrane, external ear and ear canal normal. Tympanic membrane is not injected, not erythematous, not retracted and not bulging. No middle ear effusion. Nose: Mucosal edema and rhinorrhea present. Right sinus exhibits no maxillary sinus tenderness and no frontal sinus tenderness. Left sinus exhibits no maxillary sinus tenderness and no frontal sinus tenderness. Mouth/Throat: Uvula is midline and mucous membranes are normal. Posterior oropharyngeal erythema (mild) present. No oropharyngeal exudate, posterior oropharyngeal edema or tonsillar abscesses. Eyes: Pupils are equal, round, and reactive to light. Conjunctivae and EOM are normal. Neck: Normal range of motion. Cardiovascular: Normal rate, regular rhythm and normal heart sounds. Pulmonary/Chest: Effort normal and breath sounds normal. No respiratory distress. She has no decreased breath sounds. She has no wheezes. She has no rhonchi. She has no rales. Lymphadenopathy: Head (right side): No submental, no submandibular, no tonsillar, no preauricular and no posterior auricular adenopathy present. Head (left side): No submental, no submandibular, no tonsillar, no preauricular and no posterior auricular adenopathy present. She has no cervical adenopathy. Right cervical: No posterior cervical adenopathy present. Left cervical: No posterior cervical adenopathy present. Right: No supraclavicular adenopathy present. Left: No supraclavicular adenopathy present. Skin: Skin is warm and dry. Psychiatric: Affect normal. Nursing note and vitals reviewed. ASSESSMENT/PLAN: 1. Acute suppurative otitis media of right ear - ICD9: 382.00, ICD10: H66.001 (primary diagnosis) - Will begin treatment with Amoxicillin for 10 days - Follow up in one week if symptoms persist or worsen. - AMOXICILLIN 875 MG TABLET You can take an OTC probiotic such as Culturelle or Align to help with stomach upset/loose stool that you may get as a side effect of the antibiotic. GO TO THE ER IF: 1. You have a severe headache or pain around the ear. 2. You notice swelling around the ear. 3. You have a seizure (convulsion), twitching of the facial muscles, or passes out. 4. You are dizzy, have a stiff neck, or cannot walk or talk normally. 2. URI with cough and congestion - ICD9: 465.9, ICD10: J06.9 - Discussed viral etiology and rationale for treatment. Rest, nutritious diet, Motrin or Tylenol as needed for fever or pain. Salt water gargles, chloraseptic spray or lozenges as needed for sore throat. Nasal saline irrigation at least 2 x day. Drink at least 8 glasses of fluids per day that aren't caffeinated. Use a humidifier in your room at night. A cold normally lasts 7-10 days. If your symptoms are lasting longer, develop fever, or worsening by that time instead of improving then return to clinic or follow up with PCP for re-evaluation. 3. Sore throat - ICD9: 462, ICD10: J02.9 - suspect viral - Rapid Strep negative in the office today - Discussed supportive care treatment with fluids, rest and analgesia. - The patient may also use warm salt water gargles, throat lozenges and/or OTC throat spray as needed. - The patient should follow up in one week if symptoms persist or worsen - Call back if drooling, increased temperature, symptoms of dehydration and/or still sick in one week - RAPID STREP TEST B/O * Seek medical care immediately, call 911, go to ER if you have chest pain, difficulty breathing, shortness of breath, inability to swallow. Diagnosis and treatment plan were discussed and questions were answered to the patient's satisfaction. Pt acknowledged understanding of concepts and follow up plan. Specific signs and symptoms that would indicate the need for higher level of care were discussed in detail warranting prompt ER evaluation. Cami Anderson APRN.SQL DATABASE PROGRAMMER Normal [facility] Encounters Encounter Date Encounter Type Care Provider Facility Start: 02-04-2018 End: 02-04-2018 Patient encounter procedure [facility] Summary Purpose Family History No Family History Records FoundNo Family History Records Found Advance Directives No Advanced Directives Records FoundNo Advanced Directives Records Found Additional Source Comments INFORMATION SOURCE (unrecogn ized section and content) DATE CREATED AUTHOR 02/15/2018 [facility] DATE CREATED AUTHOR AUTHOR'S ORGANIZ ATION 11/09/2018 [facility] FOR RECORDS PERTAINING TO PATIENTS WHO ARE OR HAVE BEEN ENROLLED IN A CHEMICAL DEPENDENCY/SUBSTANCEABUSE PROGRAM, SOME INFORMATION MAY BE OMITTED. This clinical summary was aggregated from multiple sources. Caution should be exercised in using it in the provision of clinical care. This summary normalizes information from multiple sources, and as a consequence, information in this document may materially change the coding, format and clinical context of patient data. In addition, data may be omitted in some cases. CLINICAL DECISIONS SHOULD BE BASED ON THE PRIMARY CLINICAL RECORDS. [employer] provides no warranty or guarantee of the accuracy or completeness of information in this document.
--- NOTE | 2024-01-04 02:19 | ED.RN ---
The patient requested crutches and to ask the Dr if she tore anything. Per Dr Ramírez, she has no bruises and is stable. Pt was upset that she was not getting crutches but has crutches in her basement that she is going to use. This RN wheeled her out and security got her car. Upon entering the car, the patient stated I didnt get any water when I was there but I have water in my car. She then stood up and cried out leg cramp! I said im sorry hemalatha. Pt closed the door and left.
== END 2024-01-04 02:09 | disposition home or self-care (01) ==
PROVIDERS: Emergency Provider Emergency Medicine; PCP Family Medicine; Visit Provider Emergency Medicine
DX: M19.072 Primary osteoarthritis, left ankle and foot (principal)
CPT/HCPCS: 73630; 99282